=== PATIENT | male | born 1975 | race Caucasian/White ===

== ENCOUNTER 2016-09-25 14:29 | Emergency (ER) | payer OTHER ==
[~2016-09-25] VITALS: Ht 177.8 cm; Wt 117.9 kg
[~2016-09-25 14:29] MED LIST: ASP325T PO; ASP81TEC PO; ATEN-158 GT; ATEN100T45 PO; ATEN100T88 PO; ATN25T; ATN50T; ATOR20TA49 PO; Atorvastatin Calcium PO; CLOP75TA PO; CLPD75T PO; CRUT1EAC16 MC; CYCL10TA45 PO; CYCL10TA9 PO; DOXY100C42 PO; GABA100C; HYDR-34 PO; HYDR-3583 PO; HYDR1TAB PO; HYOS0.1217 PO; IBP800T PO; IBUP-1773 PO; KETO-22 PO; Lisinopril PO; METF500T8 PO; MTF500T PO; NAPR-243 PO; NAPR550T PO; NIA500ERT PO; OMG1KC; OMG1KC PO; ONDAN4ODT PO; Omega 3 Polyunsat Fatty Acids PO; PNT40TEC; PNT40TEC PO; PRD20T PO; PROP1TAB77 PO; PRX20T; ROSU20TA14; SITA1TAB6; SITA1TAB6 PO; TRAM-21 PO; URSO500T9 PO; WELCHOL; [UNRECOGNIZED DRUG - OTHER]; [UNRECOGNIZED DRUG - OTHER]
[2016-09-25] MEDS ORDERED: HYDROcodone/APAP 5 MG/325 MG (LORTAB) TAB PO ONE (15:00)
[2016-09-25] MEDS ORDERED: HYDR-757 PO (15:04)
--- NOTE | 2016-09-25 15:04 | ED Fall/Injury ---
General Chief Complaint: Trauma-Non Activation Stated Complaint: BACK INJ, FALL Nursing Triage Note: PT TO ED W/ C/O BACK PAIN. SEE TRAUMA ASSESSMENT Source: patient Exam Limitations: no limitations History of Present Illness Time seen by provider: 15:00 Initial Comments To ER from home with reports of a fall downstairs on the slippery ice. Denies striking his head. Reports pain in his back between his shoulder blades and pain in his low back as well as to the right of his mid thoracic back. No abdominal injuries. He landed on his back. No extremity injuries. Location Injury Occurred: HOME Severity: moderate Injuries/Pain Location: back Context: slipped Loss of Consciousness: no loss of consciousness Modifying Factors: Worse With Movement Associated Symptoms (Fall): Denies Symptoms Allergies and Home Medications Allergies Coded Allergies: iodine (Verified Allergy, Unknown, 05/02/16) CONTRAST MEDIA tramadol (Unverified Allergy, Unknown, RASH, 05/02/16) Home Medications Atenolol 50 Mg Tab 100 MG GT DAILY (Reported) Atorvastatin Calcium 20 Mg Tablet #30 20 MG PO HS Prescribed by: TERRI GILLIAM on 05/02/16 1544 Hydrocodone/Acetaminophen 1 Each Tablet #5 1 EACH PO Q4H PRN PRN PAIN Prescribed by: RAF COLES on 09/25/16 1504 Metformin HCl 500 Mg Tab.er.24h #120 500 MG PO QID Prescribed by: TERRI GILLIAM on 05/02/16 1543 Constitutional: see HPI Eyes: No Symptoms Reported Ears, Nose, Mouth, Throat: no symptoms reported Respiratory: no symptoms reported Cardiovascular: no symptoms reported Genitourinary: no symptoms reported Musculoskeletal: see HPI back pain Skin: no symptoms reported Psychiatric/Neurological: No Symptoms Reported Past Fgtgrkd-Axouln-Xgpoqm Hx Patient Social History Alcohol Use: Occasionally Uses Recreational Drug Use: No Smoking Status: Current Everyday Smoker Type Used: Cigarettes Recent Foreign Travel: No Contact w/Someone Who Travel: No Recent Infectious Disease Expo: No Recent Hopitalizations: Yes (2008-Chest Pain) Physical Abuse Screen: No Sexual Abuse: No Immunizations Up To Date Tetanus Booster (TDap): More than 5yrs Date of Influenza Vaccine: Jun 13, 2010 Surgeries HX Surgeries: Yes Surgeries: Angioplasty, Appendectomy Respiratory Hx Respiratory Disorders: No Cardiovascular Hx Cardiac Disorders: Yes (heart cath in 2005, 02/2011) Cardiac Disorders: Hypertension Neurological Hx Neurological Disorders: No Reproductive System Hx Reproductive Disorders: No Sexually Transmitted Disease: No Genitourinary Hx Genitourinary Disorders: No Gastrointestinal Hx Gastrointestinal Disorders: No Musculoskeletal Hx Musculoskeletal Disorders: No Endocrine Hx Endocrine Disorders: Yes Endocrine Disorders: Diabetes, Non-Insulin dep HEENT HX ENT Disorders: No Cancer Hx Cancer: No Psychosocial Hx Psychiatric Problems: No Integumentary HX Skin/Integumentary Disorder: No Blood Transfusions Hx Blood Disorders: No Family Medical History Family Medial History: Cardiovascular disease 19 FATHER Diabetes mellitus 19 FATHER Hypertension 19 FATHER MS (multiple sclerosis) 19 FATHER Physical Exam Vital Signs Vital Sign - Last 12Hours 09/25/16 14:39 Temp 98.1 Pulse 86 Resp 20 B/P 133/87 Pulse Ox 99 O2 Delivery Room Air Capillary Refill : Less Than 3 Seconds General Appearance: WD/WN no apparent distress HEENT: PERRL/EOMI normal ENT inspection Neck: non-tender full range of motionNo tender lateral, No tender midline Respiratory: normal breath sounds no respiratory distress no accessory muscle use Gastrointestinal: normal bowel sounds non tender soft Back: No vertebral tenderness, other (small bruise just to the right of the thoracic spine at approximately the T4-T5 region) Extremities: normal range of motion non-tender Neurologic/Psychiatric: alert normal mood/affect oriented x 3 Skin: normal color warm/dry Eads Coma Score Best Eye Response: (4) Open Spontaneously Best Verbal Response: (5) Oriented Best Motor Response: (6) Obeys Commands Jose Total: 15 Progress/Results/Core Measures Results/Orders My Orders Orders-RAF COLES APRN Ribs/Unilateral With Chest (09/25/16 14:47) Lumbar Spine - 2-3 Views (09/25/16 14:47) Hydrocodone/Apap 5/325 Tablet (Lortab 5 (09/25/16 15:00) Medications Given in ED Current Medications Medications Dose Ordered Sig/Ernesto Route Start Time Stop Time Status Last Admin Dose Admin Acetaminophen/ Hydrocodone Bitart 1 tab ONCE ONCE PO 09/25/16 15:00 09/25/16 15:01 DC 09/25/16 15:02 1 TAB Vital Signs/I&O Vital Sign - Last 12Hours 09/25/16 14:39 Temp 98.1 Pulse 86 Resp 20 B/P 133/87 Pulse Ox 99 O2 Delivery Room Air Blood Pressure Mean: 102 Diagnostic Imaging Diagonstic Imaging: Xray Plain Films/CT/US/NM/MRI: chest Comments NAME: BRIAN KONG MED REC#: [id number] PT STATUS: REG ER : 1975 PHYSICIAN: RAF COLES APRN ADMIT DATE: 09/25/16/ER Draft Date of Exam:09/25/16 RIBS/UNILATERAL WITH CHEST INDICATION: Status post fall down steps, pain. TECHNIQUE: Single-view chest with three views right ribs at 03:18 p.m. CORRELATION STUDY: Chest from 04/10/2016. FINDINGS: Heart size and vasculature normal. Dorothy are slightly prominent but likely relatively stable. There is suggestion of minimal atelectasis about the right lung base. No significant infiltrate, effusion, or pneumothorax. There is no acute displaced right-sided rib fracture. IMPRESSION: 1. Negative for acute traumatic abnormality of the chest. No acute displaced right-sided rib fracture. 2. Minimal right basilar atelectasis. Dictated on workstation # [id number] Dict: 09/25/16 1522 Trans: 09/25/16 1531 [id number] Interpreted by: ALIREZA ALCANTAR DO Electronically signed by: Departure Impression Impression: Primary Impression: Contusion Qualified Code: S20.221A - Contusion of right back wall of thorax, initial encounter Disposition: HOME, SELF-CARE Condition: Stable Departure-Patient Inst. Decision time for Depature: 15:03 Referrals: HANNAH LEE (PCP/Family) Primary Care Physician Patient Instructions: Contusion (DC), Preventing Falls Add. Discharge Instructions: 1. Medication as directed. It is important to take a deep breath several times per hour for the next several days. Chest wall injuries make it painful to breathe and this can subcutaneous up for the development of pneumonia. It is important to take a deep breath and cough several times per hour. 2. All discharge instructions reviewed with patient and/or family. Voiced understanding. Scripts Hydrocodone/Acetaminophen ([place] 5-325 Tablet)1 Each Tablet1 Each PO Q4H PRN PAIN #5 TAB Prov:RAF COLES APRN 09/25/16 RAF COLES APRN Sep 25, 2016 15:04
--- NOTE | 2016-09-25 15:26 | Diagnostic Imaging Report ---
INDICATION: Status post fall down steps landing on back. Pain. TECHNIQUE: AP, Lateral and Spot imaging of the lumbar spine. CORRELATION STUDY: 05/29/2011. FINDINGS: There is either very mild rightward curvature or perhaps rotation of the patient. Alignment is otherwise anatomic. Lumbar vertebral body heights are maintained. Mild multilevel endplate lipping is noted. Very mild disc space narrowing is noted, particularly at the L4-L5 and L3-L4 levels. No suggestion for acute bony abnormality. SI joints are unremarkable. IMPRESSION: Mild rightward curvature or perhaps rotation of the lumbar spine. No suggestion for an acute bony abnormality. Dictated by: Dictated on workstation # [id number]
--- NOTE | 2016-09-25 15:32 | Diagnostic Imaging Report ---
INDICATION: Status post fall down steps, pain. TECHNIQUE: Single-view chest with three views right ribs at 03:18 p.m. CORRELATION STUDY: Chest from 04/10/2016. FINDINGS: Heart size and vasculature normal. Dorothy are slightly prominent but likely relatively stable. There is suggestion of minimal atelectasis about the right lung base. No significant infiltrate, effusion, or pneumothorax. There is no acute displaced right-sided rib fracture. IMPRESSION: 1. Negative for acute traumatic abnormality of the chest. No acute displaced right-sided rib fracture. 2. Minimal right basilar atelectasis. Dictated by: Dictated on workstation # [id number]
[2016-09-25 15:44] VITALS: BP 0/0
== END 2016-09-25 15:45 | disposition home or self-care (01) ==
LOC: EDUNIT# 14:29 → ER 14:31
DX: S20.221A Contusion of right back wall of thorax, initial encounter (principal); I10 Essential (primary) hypertension; E11.9 Type 2 diabetes mellitus without complications; F17.210 Nicotine dependence, cigarettes, uncomplicated; Z79.84 Long term (current) use of oral hypoglycemic drugs; Z79.899 Other long term (current) drug therapy; W10.9XXA Fall (on) (from) unspecified stairs and steps, initial encounter; Y99.8 Other external cause status
CPT/HCPCS: 71101; 72100

== ENCOUNTER 2017-01-25 15:10 | Observation (INO) | payer OTHER ==
[2017-01-25] VITALS (7 sets, daily range): BP systolic 123–139; BP diastolic 60–82
[~2017-01-25] VITALS: Ht 180.3 cm; Wt 128.0 kg
[~2017-01-25 15:10] MED LIST changes: +HYDR-757 PO
[2017-01-25 15:29] LABS: BASOPHILS % (AUTO) 0 % (0-10); EOSINOPHILS # (AUTO) 0.1 10^3/uL (0.0-0.3); EOSINOPHILS % (AUTO) 1 % (0-10); LYMPHOCYTES # (AUTO) 2.3 X 10^3 (1.0-4.0); LYMPHOCYTES % (AUTO) 25 % (12-44); MEAN CORPUSCULAR HEMOGLOBIN 32 PG (25-34); MEAN CORPUSCULAR HGB CONC 34 G/DL (32-36); MEAN CORPUSCULAR VOLUME 92 FL (80-99); MEAN PLATELET VOLUME 11.3 FL (7.4-10.4); MONOCYTES # (AUTO) 0.5 X 10^3 (0.0-1.0); MONOCYTES % (AUTO) 6 % (0-12); NEUTROPHILS # (AUTO) 6.3 X 10^3 (1.8-7.8); NEUTROPHILS % (AUTO) 68 % (42-75); PLATELET COUNT 199 10^3/uL (130-400); RED CELL DISTRIBUTION WIDTH 13.6 % (10.0-14.5); WHITE BLOOD COUNT 9.2 10^3/uL (4.3-11.0)
[2017-01-25] MEDS ORDERED: ASPIRIN 81 MG CHEW (CHILDREN'S ASA) PO ONE (15:30)
[2017-01-25] MEDS ORDERED: RX-NITROGLYCERIN 0.4 MG TAB BTL 25'S SL PRN (15:30)
[2017-01-25 15:36] LABS: INR 0.9 (0.8-1.4); PROTHROMBIN TIME PATIENT 11.7 SEC (12.2-14.7)
--- NOTE | 2017-01-25 15:43 | ED Chest Pain ---
General Chief Complaint: Chest Pain Stated Complaint: CP/SOA Nursing Triage Note: PT CO OF CHEST PAIN FOR 15 MIN, RATES 7/10 AT THIS X Nursing Sepsis Screen: No Definite Risk Source: patient Exam Limitations: no limitations History of Present Illness Time seen by provider: 15:11 Initial Comments Here with report of chest pain that is central and radiates up and down and chest that is associated with dizziness. Onset 30 minutes prior to arrival and has persisted since. Denies nausea or vomiting. Denies breathing problems. Timing/Duration: 1/2 hour Severity/Quality: moderate, pressure Location: central Radiation: sternal notch, epigastric Activities at Onset: rest Prior CP/Workup: cardiac cath, echocardiography, stress test Modifying Factors: improves with rest ASA po HIGH SPEED WARPER TENDER: No NTG SL HIGH SPEED WARPER TENDER: No Associated Symptoms: No abdominal pain, No back pain, No diaphoresis, dizziness , No fever/chills, No nausea/vomiting, No shortness of breath, No weakness Allergies and Home Medications Allergies Coded Allergies: iodine (Verified Allergy, Unknown, 05/02/16) CONTRAST MEDIA tramadol (Unverified Allergy, Unknown, RASH, 05/02/16) Home Medications Atenolol 50 Mg Tab, 100 MG GT DAILY, (Reported) Atorvastatin Calcium 20 Mg Tablet, 20 MG PO HS, #30 Prescribed by: TERRI GILLIAM on 05/02/16 1544 Hydrocodone/Acetaminophen 1 Each Tablet, 1 EACH PO Q4H PRN for PAIN, #5 Prescribed by: RAF COLES on 09/25/16 1504 Metformin HCl 500 Mg Tab.er.24h, 500 MG PO QID, #120 Prescribed by: TERRI GILLIAM on 05/02/16 1543 Review of Systems Constitutional: see HPI, No chills, No fever EENTM: No Symptoms Reported Respiratory: No Symptoms Reported, Denies Orthopnea Cardiovascular: Denies Chest Pain Gastrointestinal: No Symptoms Reported Genitourinary: No Symptoms Reported Musculoskeletal: no symptoms reported Skin: no symptoms reported Psychiatric/Neurological: No Symptoms Reported All Other Systems Reviewed Negative Unless Noted: Yes Past Ovgboxp-Rklulz-Oyrlsj Hx Patient Social History Alcohol Use: Occasionally Uses Recreational Drug Use: No Smoking Status: Current Everyday Smoker Type Used: Cigarettes Recent Foreign Travel: No Contact w/Someone Who Travel: No Recent Infectious Disease Expo: No Recent Hopitalizations: No Immunizations Up To Date Tetanus Booster (TDap): More than 5yrs Date of Influenza Vaccine: Jun 13, 2010 Surgeries HX Surgeries: Yes Surgeries: Angioplasty, Appendectomy Respiratory Hx Respiratory Disorders: No Cardiovascular Hx Cardiac Disorders: Yes (heart cath in 2005, 02/2011) Cardiac Disorders: Hypertension Neurological Hx Neurological Disorders: No Reproductive System Hx Reproductive Disorders: No Sexually Transmitted Disease: No Genitourinary Hx Genitourinary Disorders: No Gastrointestinal Hx Gastrointestinal Disorders: No Musculoskeletal Hx Musculoskeletal Disorders: No Endocrine Hx Endocrine Disorders: Yes Endocrine Disorders: Diabetes, Non-Insulin dep HEENT HX ENT Disorders: No Cancer Hx Cancer: No Psychosocial Hx Psychiatric Problems: No Integumentary HX Skin/Integumentary Disorder: No Blood Transfusions Hx Blood Disorders: No Reviewed Nursing Assessment Reviewed/Agree w Nursing PMH: Yes Family Medical History Family Medial History: Cardiovascular disease 19 FATHER Diabetes mellitus 19 FATHER Hypertension 19 FATHER MS (multiple sclerosis) 19 FATHER Physical Exam Vital Signs Vital Sign - Last 12Hours 01/25/17 15:12 Temp 98.1 Pulse 72 Resp 25 B/P (MAP) 146/71 Pulse Ox 97 Capillary Refill : Less Than 3 Seconds General Appearance: No Apparent Distress, WD/WN HEENT: PERRL/EOMI, Pharynx Normal Neck: Non Tender, Supple Respiratory: Lungs Clear, Normal Breath Sounds Cardiovascular: Regular Rate, Rhythm, No Murmur Gastrointestinal: Non Tender, Soft Extremity: Normal Range of Motion, Non Tender Neurologic/Psychiatric: Alert, Oriented x3 Skin: Normal Color, Warm/Dry Progress/Results/Core Measures Results/Orders Lab Results Laboratory Tests Test 01/25/17 15:15 Range/Units White Blood Count 9.2 4.3-11.0 10^3/uL Red Blood Count 5.10 4.35-5.85 10^6/uL Hemoglobin 16.2 13.3-17.7 G/DL Hematocrit 47 40-54 % Mean Corpuscular Volume 92 80-99 FL Mean Corpuscular Hemoglobin 32 25-34 PG Mean Corpuscular Hemoglobin Concent 34 32-36 G/DL Red Cell Distribution Width 13.6 10.0-14.5 % Platelet Count 199 130-400 10^3/uL Mean Platelet Volume 11.3 H 7.4-10.4 FL Neutrophils (%) (Auto) 68 42-75 % Lymphocytes (%) (Auto) 25 12-44 % Monocytes (%) (Auto) 6 0-12 % Eosinophils (%) (Auto) 1 0-10 % Basophils (%) (Auto) 0 0-10 % Neutrophils # (Auto) 6.3 1.8-7.8 X 10^3 Lymphocytes # (Auto) 2.3 1.0-4.0 X 10^3 Monocytes # (Auto) 0.5 0.0-1.0 X 10^3 Eosinophils # (Auto) 0.1 0.0-0.3 10^3/uL Basophils # (Auto) 0.0 0.0-0.1 10^3/uL Prothrombin Time 11.7 L 12.2-14.7 SEC INR Comment 0.9 0.8-1.4 Activated Partial Thromboplast Time 32 24-35 SEC D-Dimer 0.37 0.00-0.49 UG/ML Sodium Level 137 135-145 MMOL/L Potassium Level 4.3 3.6-5.0 MMOL/L Chloride Level 105 98-107 MMOL/L Carbon Dioxide Level 26 21-32 MMOL/L Anion Gap 6 5-14 MMOL/L Blood Urea Nitrogen 12 7-18 MG/DL Creatinine 0.90 0.60-1.30 MG/DL Estimat Glomerular Filtration Rate > 60 BUN/Creatinine Ratio 13 Glucose Level 143 H 70-105 MG/DL Calcium Level 9.2 8.5-10.1 MG/DL Magnesium Level 2.3 1.8-2.4 MG/DL Total Bilirubin 0.6 0.1-1.0 MG/DL Aspartate Amino Transf (AST/SGOT) 25 5-34 U/L Alanine Aminotransferase (ALT/SGPT) 52 0-55 U/L Alkaline Phosphatase 36 L 40-136 U/L Myoglobin 42.5 10.0-92.0 NG/ML Troponin I < 0.30 <0.30 NG/ML B-Type Natriuretic Peptide 16.3 <100.0 PG/ML Total Protein 7.2 6.4-8.2 G/DL Albumin 3.9 3.2-4.5 G/DL Amylase Level 44 25-125 U/L Lipase 24 8-78 U/L My Orders Orders - NORRIS ZHU MD Cbc With Automated Diff (01/25/17 15:19) Magnesium (01/25/17 15:19) Chest 1 View, Ap/Pa Only (01/25/17 15:19) Ekg Tracing (01/25/17 15:) Cardiac Profile 1 (01/25/17:) Comprehensive Metabolic Panel (01/25/17) Myoglobin Serum (01/25/17 15:) Protime With Inr (01/25/17 15:) Partial Thromboplastin Time (01/25/17:) O2 (01/25/17:) Monitor-Rhythm Ecg Trace Only (01/25/17:) Lipid Panel (01/26/17 06:00) Aspirin Chewable Tablet (Baby Aspirin Ch (01/25/17 15:30) Rx-Nitroglycerin Sl Tabs (Rx-Nitrostat S (01/25/17:) Saline Lock/Iv-Start (01/25/17:) Lipase (01/25/17:) Amylase (01/25/17:) BNP (01/25/17:) Fibrin Degradation Products (01/25/17:) Medications Given in ED Current Medications Medications Dose Ordered Sig/Ernesto Route Start Time Stop Time Status Last Admin Dose Admin Aspirin 324 mg ONCE ONCE PO 01/25/17 15:30 01/25/17 15:31 DC 01/25/17 15:44 324 MG Nitroglycerin 0.4 mg PRN PRN SL 01/25/17 15:30 01/25/17 15:44 0.4 MG Vital Signs/I&O Vital Sign - Last 12Hours 01/25/17 15:12 Temp 98.1 Pulse 72 Resp 25 B/P (MAP) 146/71 Pulse Ox 97 Blood Pressure Mean: 96 Progress Note : Progress Note Seen and evaluated. IV, labs, EKG, chest x-ray, ASA 324 mg by mouth and nitroglycerin sublingual ordered. Monitor patient. Patient's pain relieved after one nitroglycerin. Monitor patient. Findings, results and history reviewed with patient and family. 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 I did discuss the case with Dr. Madera and he accepts patient for admission. I did consult Dr. Moreno and he accepts patient in consult. Dr. Moreno as patient's primary sleep manager. Admit, observation status. ECG Initial ECG Impression Date: January 25, 2017 Initial ECG Impression Time: 15:16 Initial ECG Rate: 69 Initial ECG Rhythm: Normal Sinus Comment Sinus rhythm with normal axis. No evidence of ST elevation [place]. Unchanged from previous. Interpreted by me. Diagnostic Imaging Diagonstic Imaging: Xray Plain Films/CT/US/NM/MRI: chest Comments NAME: BRIAN KONG [facility] REC#: [id number] PT STATUS: REG ER : 1975 PHYSICIAN: NORRIS ZHU MD ADMIT DATE: 01/25/17/ER Signed Date of Exam: 01/25/17 CHEST 1 VIEW, AP/PA ONLY INDICATION: Shortness of breath and chest pain x30 minutes.. TECHNIQUE: Single view chest 3:37 PM. CORRELATION STUDY: 09/25/2016 FINDINGS: Heart size, mediastinum and vasculature appearing unremarkable for portable technique. The lungs are clear with no consolidating infiltrate. There is no significant effusion or pneumothorax. IMPRESSION: 1. Negative portable chest. Dictated by: Dictated on workstation # [id number] Dict: 01/25/17 1555 Trans: 01/25/17 1556 Interpreted by: ALIREZA ALCANTAR DO Electronically signed by: ALIREZA ALCNATAR DO 01/25/17 1556 Reviewed: Reviewed by Me Departure Communication Time/Spoke to Admitting Phy: 17:57 Time/Spoke to Consulting Physi: 18:02 Impression Impression: Primary Impression: Chest pain Qualified Codes: R07.9 - Chest pain, unspecified Disposition: 09 ADMITTED INPATIENT Condition: Stable Decision to Admit Reason: Admit from ER (General) Decision to Admit/Date: January 25, 2017 Time/Decision to Admit Time: 17:57 Departure-Patient Inst. Referrals: DAMARIS MADERA MD (PCP/Family) Primary Care Physician NORRIS ZHU MD January 25, 2017 15:43
[2017-01-25 15:46] LABS: ALANINE AMINOTRANSFERASE 52 U/L (0-55); ALBUMIN 3.9 G/DL (3.2-4.5); AMYLASE 44 U/L (25-125); ANION GAP 6 MMOL/L (5-14); ASPARTATE AMINO TRANSFERASE 25 U/L (5-34); BILIRUBIN,TOTAL 0.6 MG/DL (0.1-1.0); BLOOD UREA NITROGEN 12 MG/DL (7-18); BUN/CREATININE RATIO 13; CALCIUM 9.2 MG/DL (8.5-10.1); CARBON DIOXIDE 26 MMOL/L (21-32); CHLORIDE 105 MMOL/L (98-107); GFR ESTIMATED > 60; GLUCOSE 143 MG/DL (70-105); LIPASE 24 U/L (8-78); MAGNESIUM 2.3 MG/DL (1.8-2.4); POTASSIUM 4.3 MMOL/L (3.6-5.0); SODIUM 137 MMOL/L (135-145); TOTAL PROTEIN 7.2 G/DL (6.4-8.2)
[2017-01-25 15:53] LABS: MYOGLOBIN SERUM 42.5 NG/ML (10.0-92.0)
--- NOTE | 2017-01-25 15:58 | Diagnostic Imaging Report ---
INDICATION: Shortness of breath and chest pain x30 minutes.. TECHNIQUE: Single view chest 3:37 PM. CORRELATION STUDY: 09/25/2016 FINDINGS: Heart size, mediastinum and vasculature appearing unremarkable for portable technique. The lungs are clear with no consolidating infiltrate. There is no significant effusion or pneumothorax. IMPRESSION: 1. Negative portable chest. Dictated by: Dictated on workstation # [id number]
[2017-01-25] MEDS ORDERED: CATHETER FLUSH 10 ML SYR IV PRN (20:00)
[2017-01-25] MEDS ORDERED: NITROGLYCERIN SUBLINGUAL 0.4 MG TAB (NITROSTAT) SL PRN (20:00)
[2017-01-25] MEDS ORDERED: morphine INJ 4 MG/ML 1 ML (VIAL/SYRINGE) IV PRN (20:00)
--- NOTE | 2017-01-25 20:27 | History & Physicial ---
History of Present Illness History of Present Illness Reason for visit/HPI 41-year-old male admitted for observation due to chest pain that is substernal in nature. Apparently the symptoms started about 30 minutes prior to presentation at the emergency department. When also concerned him is the fact that he had some dizziness. He is currently on medication for hypertension, diabetes as well as hyperlipidemia. In August 2014 he underwent cardiac stress test that did not reveal any acute findings. He also has had cardiac catheterization in 2005 and 2010. He reports no coronary stents. Date of Admission January 25, 2017 at 18:33 I consulted on this patient on 01/25/17 20:25 Attending Physician Serge Madera MD Admitting Physician Serge Madera MD Consult Allergies and Home Medications Allergies Coded Allergies: iodine (Verified Allergy, Unknown, 05/02/16) CONTRAST MEDIA tramadol (Unverified Allergy, Unknown, RASH, 05/02/16) Home Medications Atenolol 50 Mg Tab, 100 MG GT DAILY, (Reported) Atorvastatin Calcium 20 Mg Tablet, 20 MG PO HS, #30 Prescribed by: TERRI GILLIAM on 05/02/16 1544 Hydrocodone/Acetaminophen 1 Each Tablet, 1 EACH PO Q4H PRN for PAIN, #5 Prescribed by: RAF COLES on 09/25/16 1504 Metformin HCl 500 Mg Tab.er.24h, 500 MG PO QID, #120 Prescribed by: TERRI GILLIAM on 05/02/16 1543 Past Agemhis-Ztuzpz-Zjpqah Hx Patient Social History Marrital Status: Alcohol Use: Occasionally Uses Recreational Drug Use: No Smoking Status: Current Everyday Smoker Type Used: Cigarettes Recent Foreign Travel: No Contact w/other who traveled: No Recent Hopitalizations: No Recent Infectious Disease Expo: No Immunizations Up To Date Tetanus Booster (TDap): More than 5yrs Date of Influenza Vaccine: Jun 13, 2010 Surgeries HX Surgeries: Yes Surgeries: Angioplasty, Appendectomy Respiratory Hx Respiratory Disorders: No Cardiovascular Hx Cardiovascular Disorders: Yes (heart cath in 2005, 02/2011) Cardiac Disorders: Hypertension Neurological Hx Neurological Disorders: No Reproductive System Hx Reproductive Disorders: No Sexually Transmitted Disease: No Genitourinary Hx Genitourinary Disorders: No Gastrointestinal Hx Gastrointestinal Disorders: No Musculoskeletal Hx Musculoskeletal Disorders: No Endocrine Hx Endocrine Disorders: Yes Endocrine Disorders: Diabetes, Non-Insulin dep HEENT HX ENT Disorders: No Cancer Hx Cancer: No Psychosocial Hx Psychiatric Problems: No Integumentary HX Skin/Integumentary Disorder: No Blood Transfusions Hx Blood Disorders: No Reviewed Nursing Assessment Reviewed/Agree w Nursing PMH: Yes Family Medical History Family Hx: Cardiovascular disease 19 FATHER Diabetes mellitus 19 FATHER Hypertension 19 FATHER MS (multiple sclerosis) 19 FATHER Constitutional: see HPI Physical Exam Vital Signs Vital Sign - Last 12Hours 01/25/17 15:12 Temp 98.1 Pulse 72 Resp 25 B/P (MAP) 146/71 Pulse Ox 97 Capillary Refill : Less Than 3 Seconds General Appearance: No Apparent Distress Eyes: Bilateral Eye Normal Inspection HEENT: Pharynx Normal Neck: Non Tender, Supple Respiratory: Lungs Clear Cardiovascular: Regular Rate, Rhythm Gastrointestinal: Soft Rectal: Deferred Back: Normal Inspection Extremity: Normal Capillary Refill Skin: Normal Color Assessment/Plan Assessment and Plan 1. Chest pain -Patient to be admitted to [facility] for overnight observation. -Further cardiac laboratory to be performed. -Cardiology consultation 2. Hyperlipidemia - to be maintain on atorvastatin 3. Diabetes mellitus -He will be continued on metformin 4. Hypertension -Currently treated with beta andrews Problems: Admission Diagnosis 1. Chest pain 2. Hyperlipidemia 3. Diabetes mellitus 4. Hypertension Clinical Quality Measures AMI/AHF: ASA po Prior to arrival: No SERGE MADERA MD January 25, 2017 20:27
[2017-01-25] MEDS: CATHETER FLUSH 10 ML SYR IV SCH (22:29)
[2017-01-26 00:15] VITALS: BP 127/58
[2017-01-26 03:20] VITALS: BP 133/60
[2017-01-26 05:34] LABS: CREATINE KINASE 82 U/L (30-200)
[2017-01-26 05:35] LABS: CHOLESTEROL 239 MG/DL (< 200); DIRECT LDL 89 MG/DL (1-129); TRIGLYCERIDES 888 MG/DL (<150); VLDL CHOLESTEROL 178 MG/DL (5-40)
[2017-01-26 05:42] LABS: MYOGLOBIN SERUM 28.9 NG/ML (10.0-92.0); TROPONIN I < 0.30 NG/ML (<0.30)
[2017-01-26] MEDS: CATHETER FLUSH 10 ML SYR IV SCH (05:44)
--- NOTE | 2017-01-26 07:38 | Progress Note (SOAP) ---
Subjective Subjective/Events-last exam Patient apparently had a good night not suffering from any dizziness or chest pain. Objective Exam Vital Signs Date Time Temp Pulse Resp B/P (MAP) Pulse Ox O2 Delivery O2 Flow Rate FiO2 01/26/17 03:20 96.4 60 16 133/60 96 01/26/17 01:07 68 01/26/17 00:15 97.1 63 20 127/58 94 01/25/17 23:30 95.9 70 20 134/60 95 01/25/17 22:15 96.8 59 20 139/63 95 01/25/17 21:15 96.4 63 20 135/63 96 01/25/17 20:15 97.8 59 18 124/74 97 01/25/17 20:00 96.0 65 20 123/73 97 01/25/17 19:45 96.9 82 16 128/82 92 01/25/17 19:35 96.3 55 20 135/68 95 01/25/17 18:59 60 14 97 01/25/17 15:12 98.1 72 25 146/71 97 I & O 01/26/17 07:00 Intake Total 0 ml Output Total 1350 ml Balance -1350 ml Capillary Refill : Less Than 3 Seconds General Appearance: No Apparent Distress Neck: Supple Respiratory: Chest Non Tender, Lungs Clear Cardiovascular: Regular Rate, Rhythm Gastrointestinal: soft Results Lab Laboratory Tests 01/25/17 15:15: White Blood Count 9.2, Red Blood Count 5.10, Hemoglobin 16.2, Hematocrit 47, Mean Corpuscular Volume 92, Mean Corpuscular Hemoglobin 32, Mean Corpuscular Hemoglobin Concent 34, Red Cell Distribution Width 13.6, Platelet Count 199, Mean Platelet Volume 11.3H, Neutrophils (%) (Auto) 68, Lymphocytes (%) (Auto) 25 , Monocytes (%) (Auto) 6, Eosinophils (%) (Auto) 1, Basophils (%) (Auto) 0, Neutrophils # (Auto) 6.3, Lymphocytes # (Auto) 2.3, Monocytes # (Auto) 0.5, Eosinophils # (Auto) 0.1, Basophils # (Auto) 0.0, Prothrombin Time 11.7L, INR Comment 0.9, Activated Partial Thromboplast Time 32, D-Dimer 0.37, Sodium Level 137, Potassium Level 4.3, Chloride Level 105, Carbon Dioxide Level 26, Anion Gap 6, Blood Urea Nitrogen 12, Creatinine 0.90, Estimat Glomerular Filtration Rate > 60, BUN/Creatinine Ratio 13, Glucose Level 143H, Calcium Level 9.2, Magnesium Level 2.3, Total Bilirubin 0.6, Aspartate Amino Transf (AST/SGOT) 25, Alanine Aminotransferase (ALT/SGPT) 52, Alkaline Phosphatase 36L, Myoglobin 42.5 , Troponin I < 0.30, B-Type Natriuretic Peptide 16.3, Total Protein 7.2, Albumin 3.9, Amylase Level 44, Lipase 24 01/25/17 21:56: Glucometer 138H 01/26/17 04:50: Myoglobin 28.9, Troponin I < 0.30, Total Creatine Kinase 82, Triglycerides Level 888H, Cholesterol Level 239H, LDL Cholesterol Direct 89, VLDL Cholesterol 178H, HDL Cholesterol 27L 01/26/17 05:05: Glucometer 96 Assessment/Plan Assessment/Plan Assess & Plan/Chief Complaint 1. Chest pain -Patient to be admitted to [facility] for overnight observation. -Further cardiac laboratory to be performed. -01/26 -ECG revealed no acute findings from this morning -Cardiology consultation pending 2. Hyperlipidemia - to be maintain on atorvastatin -01/26 triglycerides and total cholesterol added with low HDL at 27 3. Diabetes mellitus -He will be continued on metformin -01/26 Leukos under control 4. Hypertension -Currently treated with beta andrews Clinical Quality Measures AMI/AHF: ASA po Prior to arrival: No DVT/VTE Risk/Contraindication: Risk Factor Score Per Nursin RFS Level Per Nursing on Admit: 2=Moderate DAMARIS MADERA MD January 26, 2017 07:38
[2017-01-26 08:08] VITALS: BP 123/70
--- NOTE | 2017-01-26 08:16 | Consultation-Cardiology ---
HPI-Cardiology Cardiology Consultation Date of Consultation 01/26/17 Date of Admission Indication: Chest pain HPI Patient is a 41 y/o male with history of hypertension, hyperlipidemia, diabetes mellitus, presented to the ER with complaints of chest pain and dyspnea. Patient reports chest pain was relieved by nitroglycerin. Denies any active chest pain at this time. States he had episode similar to this last week as well. Denies any radiation of pain, nausea vomiting, diaphoresis, swelling in legs. Last cardiac workup was August 2014. Patient was seen and evaluated, he is a 41 years old gentleman with history of hypertension and hyperlipidemia and diabetes, has been having occasional chest pain, had an episode of chest pain relieved by nitroglycerin in the emergency room, was chest pain-free this morning, denied any palpitation, syncope or near syncopal episodes, I proceed with exercise stress echo which did not show any ischemia or infarction, reassured him at this time. We'll arrange for follow- up as an outpatient. Home Medications & Allergies Allergies: Coded Allergies: iodine (Verified Allergy, Unknown, 05/02/16) CONTRAST MEDIA tramadol (Unverified Allergy, Unknown, RASH, 05/02/16) Home Medication List Reviewed: Yes [id number]-[id number]-[id number] Hx Patient Social History Marital Status: Alcohol Use: Occasionally Uses Recreational Drug Use: No Smoking Status: Current Everyday Smoker Type Used: Cigarettes Recent Foreign Travel: No Recent Infectious Disease Expo: No Recent Hopitalizations: No Physical Abuse Screen: No Sexual Abuse: No Immunizations Up To Date Tetanus Booster (TDap): More than 5yrs Date of Influenza Vaccine: Jun 13, 2010 Family Medical History Family History: Cardiovascular disease 19 FATHER Diabetes mellitus 19 FATHER Hypertension 19 FATHER MS (multiple sclerosis) 19 FATHER Constitutional: No diaphoresis, No fever, No malaise EENTM: No blurred vision, No double vision, No ear pain, No eye pain, No throat pain, No vision loss Respiratory: No cough, dyspnea on exertion, short of breath, No wheezing Cardiovascular: chest pain, No edema, No Hx of Intervention, No palpitations, No vascular heart diseas Gastrointestinal: No abdominal pain, No constipation, No diarrhea Genitourinary: No discharge, No dysuria, No frequency, No hematuria Musculoskeletal: No back pain Skin: No lesions, No rash Psychiatric/Neurological: Denies Anxiety Reviewed Test Results Reviewed Test Results Lab Laboratory Tests 01/25/17 15:15: White Blood Count 9.2, Red Blood Count 5.10, Hemoglobin 16.2, Hematocrit 47, Mean Corpuscular Volume 92, Mean Corpuscular Hemoglobin 32, Mean Corpuscular Hemoglobin Concent 34, Red Cell Distribution Width 13.6, Platelet Count 199, Mean Platelet Volume 11.3H, Neutrophils (%) (Auto) 68, Lymphocytes (%) (Auto) 25 , Monocytes (%) (Auto) 6, Eosinophils (%) (Auto) 1, Basophils (%) (Auto) 0, Neutrophils # (Auto) 6.3, Lymphocytes # (Auto) 2.3, Monocytes # (Auto) 0.5, Eosinophils # (Auto) 0.1, Basophils # (Auto) 0.0, Prothrombin Time 11.7L, INR Comment 0.9, Activated Partial Thromboplast Time 32, D-Dimer 0.37, Sodium Level 137, Potassium Level 4.3, Chloride Level 105, Carbon Dioxide Level 26, Anion Gap 6, Blood Urea Nitrogen 12, Creatinine 0.90, Estimat Glomerular Filtration Rate > 60, BUN/Creatinine Ratio 13, Glucose Level 143H, Calcium Level 9.2, Magnesium Level 2.3, Total Bilirubin 0.6, Aspartate Amino Transf (AST/SGOT) 25, Alanine Aminotransferase (ALT/SGPT) 52, Alkaline Phosphatase 36L, Myoglobin 42.5 , Troponin I < 0.30, B-Type Natriuretic Peptide 16.3, Total Protein 7.2, Albumin 3.9, Amylase Level 44, Lipase 24 01/25/17 21:56: Glucometer 138H 01/26/17 04:50: Myoglobin 28.9, Troponin I < 0.30, Total Creatine Kinase 82, Triglycerides Level 888H, Cholesterol Level 239H, LDL Cholesterol Direct 89, VLDL Cholesterol 178H, HDL Cholesterol 27L 01/26/17 05:05: Glucometer 96 ECG Impression ECG Initial ECG Rhythm: Normal Sinus Physical Exam Vital Signs Vital Sign - Last 12Hours 01/25/17 15:12 Temp 98.1 Pulse 72 Resp 25 B/P (MAP) 146/71 Pulse Ox 97 Capillary Refill : Less Than 3 Seconds General Appearance: No Apparent Distress, WD/WN HEENT: PERRL/EOMI, TMs Normal Neck: Non Tender, Supple Respiratory: Chest Non Tender, Lungs Clear Cardiovascular: Regular Rate, Rhythm, No Edema, No Gallop, No JVD, Other ( trace bilateral lower extremity edema) Gastrointestinal: Non Tender, Soft Rectal: Deferred Back: No CVA Tenderness Extremity: No Calf Tenderness Neurologic/Psychiatric: Alert, Oriented x3, No Motor/Sensory Deficits, Normal Mood/Affect A/P-Cardiology Admission Diagnosis CP HTN HLP DM Assessment/Plan Chest pain, non specific etiology- EKG reveals no acute ST changes, cardiac enzymes negative. Patient reports CP was relieved by nitro in the ER. Last cardiac workup Aug 2014. Patient has multiple risk factors for progression of CAD, will further evaluate with stress echo today. Nonobstructive CAD per cardiac cath done in 2010. HTN- restart home BP medications and continue to monitor. HLP- maintained on Lipitor 20mg as outpatient. Lipids are poorly controlled. I will add fenofibrate, discussed diet and exercise for better control. DM- management per PCP Tobaccoism- educated on the importance of smoking cessation Obesity- discussed diet and exercise for weight loss. Thank you for allowing us to participate in the management of Mr. Buchanan. This is Pam Victor PA-C as a scribe for Dr. Moreno. Patient was seen and evaluated with Pam, agree with the current scribe, I interviewed the patient and performed physical examination, his lungs were clear to auscultation bilaterally, heart is regular rate and rhythm, patient had mild coronary artery disease in 2010 by cardiac catheterization, admitted with acute chest pain and no acute EKG changes or cardiac enzymes changes, I proceed with exercise stress echo which did not show any ischemia or infarction , he had hypertensive response to exercise, I will restart his home medication, monitor lipids, educated on weight loss and exercise, educated on avoiding tobacco product. Okay for discharge today. Arrange for follow-up as an outpatient. I reviewed the note and agree with the current scribe, made few modification and used Italic Font Clinical Quality Measures AMI/AHF: ASA po Prior to arrival: No DVT/VTE Risk/Contraindication: Risk Factor Score Per Nursin RFS Level Per Nursing on Admit: 2=Moderate PAM ADAIR January 26, 2017 08:16 VALENTINA MORENO MD January 26, 2017 12:22
[2017-01-26] MEDS ORDERED: ASPIRIN E.C. 325 MG (ECOTRIN) TABLET PO SCH (09:00)
[2017-01-26] MEDS ORDERED: METF500T8 PO (09:27)
[2017-01-26] MEDS ORDERED: ASPI-983 PO (09:27)
[2017-01-26] MEDS ORDERED: FISH1CAP15 PO (09:27)
[2017-01-26] MEDS ORDERED: ATEN100T PO (09:27)
[2017-01-26 12:00] VITALS: BP 145/75
[2017-01-26 13:47] VITALS: BP 145/75
--- NOTE | 2017-01-28 12:56 | STRESS TEST ---
DATE OF SERVICE: 01/26/2017 EXERCISE STRESS ECHOCARDIOGRAM REPORT REFERRING PHYSICIAN: Dr. Serge Mosqueda. Baseline heart rate is 58, baseline blood pressure 144/71. Baseline EKG sinus rhythm. SUMMARY: The patient started exercising with the baseline heart rate, blood pressure and EKG mentioned above. He was able to exercise for 9 minutes on standard Juancarlos protocol. Test was terminated due to shortness of breath. He achieved maximum heart rate of 138, which is 77% of maximum expected heart rate. With peak exercise level blood pressure was 200/71. EKG was showing no ischemic changes. Echocardiographic images were acquired and reviewed in the parasternal long axis, parasternal short axis, apical four chamber and apical two chamber views. Review of the images showed normal left ventricular size with normal contractility with no ischemic changes. CONCLUSION: 1. Good exercise tolerance a total of 9 minutes on standard Juancarlos protocol, a total of 10.1 METS achieving only 77% of maximum expected heart rate. 2. Hypertensive response to exercise. 3. Shortness of breath with exercise, resolved during recovery. 4. Normal echocardiographic images with no ischemic changes. 5. No ischemic changes on EKG. Job ID: [id number] DocumentID: [id number] Dictated Date: 01/26/2017 15:10:35 Tool Technician Date: 01/27/2017 08:09:59 Dictated By: VALENTINA VALLADARES MD
== END 2017-01-26 12:24 | disposition home or self-care (01) ==
LOC: EDUNIT# 15:10 → ER 15:12 → 4TH 18:33 → UNDOADMOB 18:33 → 4TH 19:30 → UNDODISOB 01-26 13:49
PROVIDERS: ADMIT Family Medicine; ATTEND Family Medicine
DX: R07.9 Chest pain, unspecified (principal); I10 Essential (primary) hypertension; E11.9 Type 2 diabetes mellitus without complications; Z79.84 Long term (current) use of oral hypoglycemic drugs; E78.5 Hyperlipidemia, unspecified; F17.210 Nicotine dependence, cigarettes, uncomplicated; I25.10 Atherosclerotic heart disease of native coronary artery without angina pectoris; E66.9 Obesity, unspecified; Z68.39 Body mass index [BMI] 39.0-39.9, adult
CPT/HCPCS: 36415; 71010; 80053; 80061; 82150; 82550; 82962; 83690; 83735; 83874; 83880; 84484; 85025; 85379; 85610; 85730; 93005; 93041; 93351; G0378

== ENCOUNTER 2017-03-19 20:00 | Emergency (ER) | payer OTHER ==
[~2017-03-19] VITALS: Ht 180.3 cm; Wt 128.0 kg
[~2017-03-19 20:00] MED LIST changes: +ASPI-983 PO; +ATEN100T PO; +FISH1CAP15 PO
--- NOTE | 2017-03-19 20:13 | ED Back Pain ---
General Stated Complaint: BACK PAIN Source of Information: Patient Exam Limitations: No Limitations History of Present Illness Time Seen by Provider: 20:12 Initial Comments Ambulatory to ER with reports of midline low back pain. This started earlier today after helping a friend move a dresser. Pain does not radiate down either of his legs. No bowel or bladder control. No fevers or chills. He does have a history this is been years ago. Location: Lumbar Spine Timing/Duration: 4-6 Hours Severity: Moderate Associated Symptoms: lower back pain Allergies and Home Medications Allergies Coded Allergies: iodine (Verified Allergy, Unknown, 05/02/16) CONTRAST MEDIA tramadol (Unverified Allergy, Unknown, RASH, 05/02/16) Home Medications Aspirin 81 Mg Tablet.dr, 81 MG PO DAILY, (Reported) Atenolol 100 Mg Tablet, 100 MG PO DAILY, (Reported) Fish Oil/Dha/Epa 1 Each Capsule, 2,400 MG PO DAILY, (Reported) TAKES 2 (1200MG) CAPSULES Metformin HCl 500 Mg Tab.er.24h, 1,000 MG PO BID, (Reported) LAST FILLED #120 12-05-16 TAKES 2 (500MG) TABLETS Constitutional: see HPI EENTM: see HPI Respiratory: no symptoms reported Cardiovascular: no symptoms reported Genitourinary: no symptoms reported Musculoskeletal: see HPI, back pain Skin: no symptoms reported Psychiatric/Neurological: No Symptoms Reported Past Ptqsdjn-[id number]-Krhjnk Hx Patient Social History Type Used: Cigarettes Recent Foreign Travel: No Contact w/Someone Who Travel: No Recent Hopitalizations: No Immunizations Up To Date Tetanus Booster (TDap): More than 5yrs PED Vaccines UTD: Yes Date of Influenza Vaccine: Jun 13, 2010 Seasonal Allergies Seasonal Allergies: No Surgeries HX Surgeries: Yes Surgeries: Angioplasty, Appendectomy Respiratory Hx Respiratory Disorders: No Cardiovascular Hx Cardiac Disorders: Yes (heart cath in 2005, 02/2011) Cardiac Disorders: Hypertension Neurological Hx Neurological Disorders: No Reproductive System Hx Reproductive Disorders: No Sexually Transmitted Disease: No HIV/AIDS: No Genitourinary Hx Genitourinary Disorders: No Gastrointestinal Hx Gastrointestinal Disorders: No Musculoskeletal Hx Musculoskeletal Disorders: No Endocrine Hx Endocrine Disorders: Yes Endocrine Disorders: Diabetes, Non-Insulin dep HEENT HX ENT Disorders: No Cancer Hx Cancer: No Psychosocial Hx Psychiatric Problems: No Integumentary HX Skin/Integumentary Disorder: No Blood Transfusions Hx Blood Disorders: No Adverse Reaction to a Blood Tr: No Family Medical History Family Medial History: Cardiovascular disease 19 FATHER Diabetes mellitus 19 FATHER Hypertension 19 FATHER MS (multiple sclerosis) 19 FATHER Physical Exam Vital Signs Capillary Refill : General Appearance: No Apparent Distress, WD/WN HEENT: PERRL/EOMI, TMs Normal Neck: Full Range of Motion, Normal Inspection Respiratory: No Accessory Muscle Use, No Respiratory Distress Gastrointestinal: Normal Bowel Sounds, Non Tender, Soft Back: Normal Inspection, No Vertebral Tenderness Extremity: Normal Capillary Refill, Normal Inspection Neurologic/Psychiatric: Alert, Oriented x3 Skin: Normal Color, Warm/Dry Progress/Results/Core Measures Results/Orders My Orders Orders - RAF COLES APRN Morphine Injection (Morphine Injection (03/19/17 20:15) Ketorolac Injection (Toradol Injection) (03/19/17 20:15) Departure Impression Impression: Primary Impression: Back pain Disposition: HOME, SELF-CARE Condition: Improved Departure-Patient Inst. Decision time for Depature: 20:15 Referrals: DAMARIS MADERA MD (PCP/Family) Primary Care Physician Patient Instructions: Low Back Pain (DC) Add. Discharge Instructions: 1. Return to ER for any concerns 2. Follow-up with your doctor next week 3. Scripts Hydrocodone/Acetaminophen (Banks 5-325 Tablet) 1 Each Tablet 1 EACH PO Q4H Y for PAIN-SEVERE, #10 TAB Prov: RAF COLES APRN 03/19/17 Prednisone (Prednisone) 20 Mg Tab 40 MG PO DAILY, #6 TAB Prov: RAF COLES APRN 03/19/17 RAF COLES APRN Mar 19, 2017 20:13
[2017-03-19] MEDS ORDERED: KETOROLAC 60 MG/2 ML VIAL IM ONE (20:15)
[2017-03-19] MEDS ORDERED: morphine INJ 10 MG/ML 1ML (SYR OR VIAL) IM ONE (20:15)
[2017-03-19] MEDS ORDERED: HYDR-757 PO (20:16)
[2017-03-19] MEDS ORDERED: PRD20T PO (20:16)
[2017-03-19 21:03] VITALS: BP 130/64
--- OUTSIDE RECORDS SUMMARY | 2017-03-23 08:17 | XMS REPORT | Continuity of Care Document ---
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 plasma creatinine measurement (mass/volume) 0.90 mg /dL 0.60-1.30 Serum or plasma urea nitrogen/creatinine mass ratio 13 NRG Serum or plasma creatinine measurement with calculation of estimated glomerular filtration rate > NRG Serum or plasma glucose measurement (mass/volume) 143 mg/dL 70-105 Serum or plasma calcium measurement (mass/volume) 9.2 mg/dL 8.5-10.1 Serum or plasma total bilirubin measurement (mass/volume) 0.6 mg/dL 0.1-1.0 Serum or plasma alkaline phosphatase measurement (enzymatic activity/volume) 36 U/L 40-136 Serum or plasma aspartate aminotransferase measurement (enzymatic activity/ volume) 25 U/L 5-34 Serum or plasma alanine aminotransferase measurement (enzymatic activity/volume ) 52 U/L 0-55 Serum or plasma protein measurement (mass/volume) 7.2 g/dL 6.4-8.2 Serum or plasma albumin measurement (mass/volume) 3.9 g/dL 3.2-4.5 Magnesium - 01/25/17 15:15 Magnesium 2.3 mg/dL 1.8-2.4 Serum or plasma troponin i.cardiac measurement (mass/volume) - 01/25/17 15:15 Serum or plasma troponin i.cardiac measurement (mass/volume) < ng/mL <0.30 Myoglobin, serum - 01/25/17 15:15 Myoglobin, serum 42.5 ng/mL 10.0-92.0 Serum or plasma amylase measurement (enzymatic activity/volume) - 01/25/17 15: 15 Serum or plasma amylase measurement (enzymatic activity/volume) 44 U/L 25-125 Lipase - 01/25/17 15:15 Lipase 24 U/L 8-78 Capillary blood glucose measurement by glucometer (mass/volume) - 01/25/17 21: 56 Capillary blood glucose measurement by glucometer (mass/volume) 138 mg/dL 70-110 Serum or plasma creatine kinase measurement (enzymatic activity/volume) - 01/26 04:50 Serum or plasma creatine kinase measurement (enzymatic activity/volume) 82 U/L 30-200 Lipid 1996 panel - 01/26/17 04:50 Serum or plasma triglyceride measurement (mass/volume) 888 mg/dL <150 Serum or plasma cholesterol measurement (mass/volume) 239 mg /dL < 200 Serum or plasma cholesterol in HDL measurement (mass/volume) 27 mg/dL 40-60 Cholesterol in LDL [mass/volume] in serum or plasma by direct assay 89 mg/dL 1-129 Serum or plasma cholesterol in VLDL measurement (mass/volume) 178 mg/dL 5-40 Serum or plasma troponin i.cardiac measurement (mass/volume) - 01/26/17 04:50 Serum or plasma troponin i.cardiac measurement (mass/volume) < ng/mL <0.30 Myoglobin, serum - 01/26/17 04:50 Myoglobin, serum 28.9 ng/mL 10.0-92.0 Capillary blood glucose measurement by glucometer (mass/volume) - 01/26/17 05: 05 Capillary blood glucose measurement by glucometer (mass/volume) 96 mg/dL 70-110 Encounters ACCT No. Visit Date/Time Discharge Status Pt. Type Provider Facility Loc./Unit Complaint [id number] 09/08/2014 11:30:00 09/08/2014 23: 59:59 CLS Outpatient LINDSAY MATTHEW DO [id number] 06/26/2014 08:50:00 06/26/2014 23: 59:59 CLS Outpatient HANNAH LEE APRN [id number] 04/11/2014 15:37:00 04/11/2014 23: 59:59 CLS Outpatient HANNAH LEE APRN [id number] 12/01/2012 18:23:00 12/01/2012 23: 59:59 CLS Outpatient HANNAH LEE APRN [id number] 10/13/2011 16:18:00 10/13/2011 23: 59:59 CLS Outpatient JENNA VENTURA, MYNOR
== END 2017-03-19 21:03 | disposition home or self-care (01) ==
LOC: EDUNIT# 20:00 → ER 20:02
DX: M54.5 Low back pain (principal); E11.9 Type 2 diabetes mellitus without complications; I10 Essential (primary) hypertension; F17.210 Nicotine dependence, cigarettes, uncomplicated; Z82.49 Family history of ischemic heart disease and other diseases of the circulatory system; Z90.49 Acquired absence of other specified parts of digestive tract; Z98.61 Coronary angioplasty status; Z79.82 Long term (current) use of aspirin; Z79.84 Long term (current) use of oral hypoglycemic drugs
CPT/HCPCS: 96372; 99284

== ENCOUNTER 2017-04-19 13:33 | Emergency (ER) | payer OTHER ==
[~2017-04-19] VITALS: Ht 180.3 cm; Wt 122.0 kg
[2017-04-19] MEDS ORDERED: morphine INJ 10 MG/ML 1ML (SYR OR VIAL) IM ONE (13:45)
[2017-04-19] MEDS ORDERED: KETOROLAC 60 MG/2 ML VIAL IM ONE (13:45)
--- NOTE | 2017-04-19 13:47 | ED Back Pain ---
General Chief Complaint: Back Problems Stated Complaint: LOWER BACK PAIN Source of Information: Patient Exam Limitations: No Limitations History of Present Illness Time Seen by Provider: 13:45 Initial Comments To ER his midline low back pain that radiates down the left leg and into the scrotum. This is been ongoing intermittently for a few months now. He was seen here for this months ago. Followed up with his doctor who scheduled him for an outpatient lumbar spine x-rays today but pain was so severe called Dr. Madera who recommended he come to the emergency room. He denies any loss of bowel or bladder control, denies any saddle anesthesia or numbness of his genitals however he does report pain that seems to radiate from his back down into his scrotum. No fevers or chills. Location: Lumbar Spine Timing/Duration: Getting Worse, Intermittent Severity: Moderate Associated Symptoms: lower back pain Allergies and Home Medications Allergies Coded Allergies: iodine (Verified Allergy, Unknown, 05/02/16) CONTRAST MEDIA tramadol (Unverified Allergy, Unknown, RASH, 05/02/16) codeine (Verified Adverse Reaction, Unknown, 03/19/17) Home Medications Aspirin 81 Mg Tablet.dr, 81 MG PO DAILY, (Reported) Atenolol 100 Mg Tablet, 100 MG PO DAILY, (Reported) Cyclobenzaprine HCl 5 Mg Tablet, 5 MG PO TID, #21 Prescribed by: RAF COLES on 04/19/17 1509 Fish Oil/Dha/Epa 1 Each Capsule, 2,400 MG PO DAILY, (Reported) TAKES 2 (1200MG) CAPSULES Hydrocodone/Acetaminophen 1 Each Tablet, 1 EACH PO Q4H PRN for PAIN-SEVERE, #10 Prescribed by: RAF COLES on 03/19/172015 Metformin HCl 500 Mg Tab.er.24h, 1,000 MG PO BID, (Reported) LAST FILLED #120 12-05-16 TAKES 2 (500MG) TABLETS Naproxen 500 Mg Tablet, 500 MG PO BID PRN for PAIN-MILD TO MODERATE, #30 Prescribed by: RAF COLES on 04/19/17 1509 Prednisone 20 Mg Tab, 40 MG PO DAILY, #6 Prescribed by: RAF COLES on 03/19/172015 Constitutional: see HPI EENTM: see HPI Respiratory: no symptoms reported Cardiovascular: no symptoms reported Genitourinary: no symptoms reported Musculoskeletal: see HPI, back pain Skin: no symptoms reported Psychiatric/Neurological: No Symptoms Reported Past Cgtstyd-Xrcfmv-Xspymr Hx Patient Social History Type Used: Cigarettes Recent Foreign Travel: No Contact w/Someone Who Travel: No Recent Hopitalizations: No Immunizations Up To Date Tetanus Booster (TDap): More than 5yrs PED Vaccines UTD: Yes Date of Influenza Vaccine: Jun 13, 2010 Seasonal Allergies Seasonal Allergies: No Surgeries HX Surgeries: Yes Surgeries: Angioplasty, Appendectomy Respiratory Hx Respiratory Disorders: No Cardiovascular Hx Cardiac Disorders: Yes (heart cath in 2005, 02/2011) Cardiac Disorders: Hypertension Neurological Hx Neurological Disorders: No Reproductive System Hx Reproductive Disorders: No Sexually Transmitted Disease: No HIV/AIDS: No Genitourinary Hx Genitourinary Disorders: No Gastrointestinal Hx Gastrointestinal Disorders: No Musculoskeletal Hx Musculoskeletal Disorders: No Endocrine Hx Endocrine Disorders: Yes Endocrine Disorders: Diabetes, Non-Insulin dep HEENT HX ENT Disorders: No Cancer Hx Cancer: No Psychosocial Hx Psychiatric Problems: No Integumentary HX Skin/Integumentary Disorder: No Blood Transfusions Hx Blood Disorders: No Adverse Reaction to a Blood Tr: No Family Medical History Family Medial History: Cardiovascular disease 19 FATHER Diabetes mellitus 19 FATHER Hypertension 19 FATHER MS (multiple sclerosis) 19 FATHER Physical Exam Vital Signs Vital Sign - Last 12Hours 04/19/17 13:40 Temp 97.9 Pulse 75 Resp 18 B/P (MAP) 163/100 Pulse Ox 94 Capillary Refill : General Appearance: No Apparent Distress, WD/WN HEENT: PERRL/EOMI, TMs Normal Neck: Full Range of Motion, Normal Inspection Respiratory: No Accessory Muscle Use, No Respiratory Distress Gastrointestinal: Normal Bowel Sounds, Non Tender, Soft Back: Normal Inspection, No Vertebral Tenderness Extremity: Normal Capillary Refill, Normal Inspection Neurologic/Psychiatric: Alert, Oriented x3, No Motor/Sensory Deficits Skin: Normal Color, Warm/Dry Progress/Results/Core Measures Results/Orders My Orders Orders - RAF COLES APRN Ketorolac Injection (Toradol Injection) (04/19/17 13:45) Morphine Injection (Morphine Injection (04/19/17 13:45) Mri Lumbar Spine W/O Contrast (04/19/17 13:44) Medications Given in ED Current Medications Medications Dose Ordered Sig/Ernesto Route Start Time Stop Time Status Last Admin Dose Admin Ketorolac Tromethamine 60 mg ONCE ONCE IM 04/19/17 13:45 04/19/17 13:46 DC 04/19/17 13:56 60 MG Morphine Sulfate 10 mg ONCE ONCE IM 04/19/17 13:45 04/19/17 13:46 DC 04/19/17 13:56 10 MG Vital Signs/I&O Vital Sign - Last 12Hours 04/19/17 13:40 Temp 97.9 Pulse 75 Resp 18 B/P (MAP) 163/100 Pulse Ox 94 Departure Impression Impression: Primary Impression: Lumbar radiculopathy Additional Impressions: Degenerative disc disease Left l5 neuroforaminal stenosis Disposition: HOME, SELF-CARE Condition: Stable Departure-Patient Inst. Decision time for Depature: 15:07 Referrals: NIK FINK BRIAN J MD KOEHN, DANIEL J MD (PCP/Family) Primary Care Physician Patient Instructions: Low Back Pain (DC), Radiculopathy (DC) Add. Discharge Instructions: 1. Call either Dr. Ryan or Dr. Fink to make an appointment to be seen. These are spine surgeons and can guide you on the best treatment plan for your back pain 2. Follow-up with Dr. Madera for additional guidance on management of your back pain 3. All discharge instructions reviewed with patient and/or family. Voiced understanding. Scripts Naproxen (Naprosyn) 500 Mg Tablet 500 MG PO BID Y for PAIN-MILD TO MODERATE, #30 TAB Prov: RAF COLES APRN 04/19/17 Cyclobenzaprine HCl (Cyclobenzaprine HCl) 5 Mg Tablet 5 MG PO TID, #21 TAB Prov: RAF COLES APRN 04/19/17 Work/School Note: Work Release Form Date Seen in the Emergency Department: Apr 20, 2017 Return to Work: Apr 19, 2017 Copy Copies To 1: DAMARIS MADERA MD, PETER J APRN Apr 19, 2017 13:47
--- NOTE | 2017-04-19 14:58 | Diagnostic Imaging Report ---
PROCEDURE: MRI lumbar spine. TECHNIQUE: Multiplanar, multisequence MRI of the lumbar spine was performed without contrast. INDICATION: Severe back pain worsening over the last three weeks and now the patient is unable to get up. FINDINGS: The alignment of the posterior spinal line is satisfactory. The vertebral body heights are preserved. There is disc desiccation in the mid and lower lumbar spine levels with no significant disc height loss seen. There are multiple focal lesions in the vertebral bodies; the largest is in L5 level measuring 1.5 cm with bright T2 and hypointense T1 signal. These lesions are lobulated in shape and are well defined in favor of benign etiology such as atypical hemangiomas. There is also a Schmorl node along the superior endplate of L3 level. There is bone marrow edema along the lower endplate of L2 in a pattern suggestive of reactive changes from disc disease. To a lesser extent, similar endplate edema findings along the right side of L4-L5 disc level is seen. There are congenital relatively short pedicles resulting in relatively short AP dimension of the spinal canal and neural foramina without congenital spinal canal stenosis. The cauda equina and conus medullaris appear grossly unremarkable. T12-L1: No disc herniation, no spinal canal or foraminal stenosis. L1-L2: No disc herniation. No spinal canal or neural foraminal stenosis. L2-L3: There is no disc herniation. There is mild facet hypertrophy. No central canal, lateral recess or foraminal stenosis. L3-L4: There is a minimal disc bulge and mild facet hypertrophy bilaterally. No central canal stenosis. There is however lateral recess stenosis of mild/ moderate degree only on the right side abutting the descending right L4 nerve root without definite compression. The foramina demonstrate mild stenosis bilaterally with more prominent on the right side. L4-L5: There is diffuse disc bulge and mild/ moderate facet hypertrophy. No central canal stenosis. There is mild/ moderate left lateral recess stenosis abutting the descending left L5 nerve root. The right lateral recess is patent. The foramina demonstrate bilateral mild stenosis. L5-S1: There is no disc herniation. There is mild facet hypertrophy. No central canal or lateral recess stenosis. There is mild left foraminal stenosis of moderate/ severe degree along the medial aspect of each foramen. 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 Dictated by: Dictated on workstation # [id number]
[2017-04-19] MEDS ORDERED: CYCL5TAB PO (15:09)
[2017-04-19] MEDS ORDERED: NAPR500T PO (15:09)
[2017-04-19 15:38] VITALS: BP 163/100
== END 2017-04-19 15:38 | disposition home or self-care (01) ==
LOC: EDUNIT# 13:33 → ER 13:35
DX: M51.16 Intervertebral disc disorders with radiculopathy, lumbar region (principal); M48.06 Spinal stenosis, lumbar region; I10 Essential (primary) hypertension; E11.9 Type 2 diabetes mellitus without complications; Z79.82 Long term (current) use of aspirin; Z82.49 Family history of ischemic heart disease and other diseases of the circulatory system; Z79.84 Long term (current) use of oral hypoglycemic drugs; Z95.1 Presence of aortocoronary bypass graft; Z90.49 Acquired absence of other specified parts of digestive tract
CPT/HCPCS: 72148; 96372; 99284

== ENCOUNTER 2017-08-22 16:35 | Emergency (ER) | payer OTHER ==
[~2017-08-22] VITALS: Ht 180.3 cm; Wt 122.5 kg
[~2017-08-22 16:35] MED LIST changes: +CYCL5TAB PO; +NAPR-1071 PO
--- OUTSIDE RECORDS SUMMARY | 2017-08-22 16:41 | XMS REPORT ---
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
--- OUTSIDE RECORDS SUMMARY | 2017-08-22 16:42 | XMS REPORT ---
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
[2017-08-22] MEDS ORDERED: FENO43CA3 PO (16:51)
[2017-08-22] MEDS ORDERED: NS IV 1000 ML 1,000 ML IV ONE (17:20)
--- NOTE | 2017-08-22 17:36 | ED GU-Male ---
General Chief Complaint: Abdominal/GI Problems Stated Complaint: ABD CRAMPING/NAUSEA Nursing Triage Note: Ambulatory to ED 4 with reports of nausea, abdominal pain and abdominal distention. Denies any vomiting or diarrhea. Source: patient, spouse Exam Limitations: no limitations History of Present Illness Time seen by provider: 17:10 Initial Comments 42-year-old male patient presents to the emergency department with complaints of lower abdominal pain, nausea, and abdominal distention. Denies vomiting, diarrhea, fever, dysuria, frequency, hematuria. Onset today. Timing/Duration: this morning Severity/Quality: cramping Location: suprapubic Radiation: none Activities at Onset: none Prior Genitourinary Problems: none Sexual [place] History: less than 2 months ago, single partner Modifying Factors: Worsens With Movement, Worsens With Palpation Allergies and Home Medications Allergies Coded Allergies: iodine (Verified Allergy, Unknown, 05/02/16) CONTRAST MEDIA tramadol (Unverified Allergy, Unknown, RASH, 05/02/16) codeine (Verified Adverse Reaction, Unknown, 03/19/17) Home Medications Atenolol 100 Mg Tablet, 100 MG PO DAILY, (Reported) Fenofibrate,Micronized 43 Mg Capsule, Unknown Dose PO, (Reported) Metformin HCl 500 Mg Tab.er.24h, 1,000 MG PO BID, (Reported) LAST FILLED #120 12-05-16 TAKES 2 (500MG) TABLETS Constitutional: No chills, No dizziness, No fever, No malaise EENTM: no symptoms reported Respiratory: No cough, No dyspnea on exertion, No phlegm, No short of breath Cardiovascular: No chest pain, No palpitations, No syncope Gastrointestinal: see HPI, abdominal pain (suprapubic abdominal pain), No constipation, No diarrhea, No dysphagia, No hematemesis, No melena, No nausea, No vomiting Genitourinary: see HPI, denies burning, denies discharge, denies dysuria, denies frequency, denies flank pain, denies hematuria, pain Musculoskeletal: No back pain Skin: no symptoms reported Psychiatric/Neurological: No Symptoms Reported All Other Systemes Reviewed Negative Unless Noted: Yes (Negative excepted noted.) Past Jvgmdbw-Pjtjef-Uvevay Hx Patient Social History Alcohol Use: Occasionally Uses Number of Drinks Today: FF Alcohol Beverage of Choice: Beer, Vodka Recreational Drug Use: No Smoking Status: Current Everyday Smoker Type Used: Cigarettes 2nd Hand Smoke Exposure: Yes Recent Foreign Travel: No Contact w/Someone Who Travel: No Recent Infectious Disease Expo: No Recent Hopitalizations: No Physical Abuse: No Sexual Abuse: No Mistreated: No Fear: No Immunizations Up To Date Tetanus Booster (TDap): More than 5yrs PED Vaccines UTD: Yes Date of Influenza Vaccine: Jun 13, 2010 Seasonal Allergies Seasonal Allergies: No Surgeries History of Surgeries: Yes Surgeries: Angioplasty, Appendectomy Respiratory History of Respiratory Disorde: No Currently Using CPAP: No Currently Using BIPAP: No Cardiovascular History of Cardiac Disorders: Yes (2 HEART CATHS, "SMALL ARTERY DISEASE") Cardiac Disorders: Coronary Artery Disease, High Cholesterol, Hypertension Neurological History of Neurological Disord: No Reproductive System Hx Reproductive Disorders: No Sexually Transmitted Disease: No HIV/AIDS: No Genitourinary History of Genitourinary Disor: No Gastrointestinal History of Gastrointestinal Di: No Musculoskeletal History of Musculoskeletal Dis: No Endocrine History of Endocrine Disorders: Yes Endocrine Disorders: Diabetes, Non-Insulin dep HEENT History of HEENT Disorders: No Cancer History of Cancer: No Psychosocial History of Psychiatric Problem: No Suicide Risk Score: 0 Integumentary History of Skin or Integumenta: No Blood Transfusions History of Blood Disorders: No Adverse Reaction to a Blood Tr: No Reviewed Nursing Assessment Reviewed/Agree w Nursing PMH: Yes Family Medical History Significant Family History: No Pertinent Family Hx Family Medial History: Cardiovascular disease 19 FATHER Diabetes mellitus 19 FATHER Hypertension 19 FATHER MS (multiple sclerosis) 19 FATHER Physical Exam Vital Signs Vital Sign - Last 12Hours 08/22/17 16:44 Temp 98.2 Pulse 72 Resp 18 B/P (MAP) 130/61 (84) Pulse Ox 98 O2 Delivery Room Air Capillary Refill : Less Than 3 Seconds General Appearance: WD/WN, no apparent distress HEENT: PERRL/EOMI, pharynx normal Neck: supple, normal inspection Cardiovascular: normal peripheral pulses, regular rate, rhythm, no edema, no murmur Respiratory: lungs clear, normal breath sounds, no respiratory distress, no accessory muscle use Gastrointestinal: normal bowel sounds, soft, no organomegaly, No distended, guarding (left lower quadrant), No rebound, tenderness (suprapubic and left lower quadrant), hernia (reducible hernia at the umbilicus consistent with incisional hernia) Back: normal inspection, no CVA tenderness Extremities: no pedal edema, normal capillary refill Neurologic/Psychiatric: alert, normal mood/affect, oriented x 3 Skin: normal color, warm/dry Progress/Results/Core Measures Suspected Sepsis Recent Fever Within 48 Hours: No Infection Criteria Present: Suspected New Infection New/Unexplained Altered Menta: No Sepsis Screen: No Definite Risk Sepsis Diagnosis: SIRS Temperature:98.2 Pulse: 72 Respiratory Rate: 18 Laboratory Tests 08/22/17 17:35: White Blood Count 8.8 Blood Pressure 130 /61 Mean: 84 Laboratory Tests 08/22/17 17:35: Creatinine 1.00, Platelet Count 188, Total Bilirubin 0.3 Results/Orders Lab Results Laboratory Tests Test 08/22/17 17:29 08/22/17 17:35 Range/Units Urine Color YELLOW Urine Clarity CLEAR Urine pH 6.5 5-9 Urine Specific [place] 1.020 1.016-1.022 Urine Protein NEGATIVE NEGATIVE Urine Glucose (UA) NEGATIVE NEGATIVE Urine Ketones NEGATIVE NEGATIVE Urine Nitrite NEGATIVE NEGATIVE Urine Bilirubin NEGATIVE NEGATIVE Urine Urobilinogen NORMAL NORMAL MG/DL Urine Leukocyte Esterase NEGATIVE NEGATIVE Urine RBC (Auto) NEGATIVE NEGATIVE Urine RBC NONE /HPF Urine WBC NONE /HPF Urine Squamous Epithelial Cells NONE /HPF Urine Crystals NONE /LPF Urine Bacteria FEW H /HPF Urine Casts NONE /LPF Urine Mucus NEGATIVE /LPF Urine Culture Indicated NO White Blood Count 8.8 4.3-11.0 10^3/uL Red Blood Count 5.01 4.35-5.85 10^6/uL Hemoglobin 15.9 13.3-17.7 G/DL Hematocrit 47 40-54 % Mean Corpuscular Volume 94 80-99 FL Mean Corpuscular Hemoglobin 32 25-34 PG Mean Corpuscular Hemoglobin Concent 34 32-36 G/DL Red Cell Distribution Width 12.9 10.0-14.5 % Platelet Count 188 130-400 10^3/uL Mean Platelet Volume 10.8 H 7.4-10.4 FL Neutrophils (%) (Auto) 65 42-75 % Lymphocytes (%) (Auto) 28 12-44 % Monocytes (%) (Auto) 6 0-12 % Eosinophils (%) (Auto) 1 0-10 % Basophils (%) (Auto) 0 0-10 % Neutrophils # (Auto) 5.7 1.8-7.8 X 10^3 Lymphocytes # (Auto) 2.5 1.0-4.0 X 10^3 Monocytes # (Auto) 0.6 0.0-1.0 X 10^3 Eosinophils # (Auto) 0.1 0.0-0.3 10^3/uL Basophils # (Auto) 0.0 0.0-0.1 10^3/uL Sodium Level 139 135-145 MMOL/L Potassium Level 3.9 3.6-5.0 MMOL/L Chloride Level 103 98-107 MMOL/L Carbon Dioxide Level 23 21-32 MMOL/L Anion Gap 13 5-14 MMOL/L Blood Urea Nitrogen 14 7-18 MG/DL Creatinine 1.00 0.60-1.30 MG/DL Estimat Glomerular Filtration Rate > 60 BUN/Creatinine Ratio 14 Glucose Level 109 H 70-105 MG/DL Calcium Level 8.9 8.5-10.1 MG/DL Total Bilirubin 0.3 0.1-1.0 MG/DL Aspartate Amino Transf (AST/SGOT) 20 5-34 U/L Alanine Aminotransferase (ALT/SGPT) 37 0-55 U/L Alkaline Phosphatase 28 L 40-136 U/L Total Protein 7.0 6.4-8.2 GM/DL Albumin 3.9 3.2-4.5 GM/DL Lipase 19 8-78 U/L My Orders Orders - SHARONDA HUTCHINSON Cbc With Automated Diff (08/22/17 17:20) Comprehensive Metabolic Panel (08/22/17 17:20) Lipase (08/22/17 17:20) Ua Culture If Indicated (08/22/17 17:20) Saline Lock/Iv-Start (08/22/17 17:20) Ct Abdomen/Pelvis Wo (08/22/17 17:20) Ns Iv 1000 Ml (Sodium Chloride 0.9%) (08/22/17 17:20) Ketorolac Injection (Toradol Injection) (08/22/17 18:19) Levofloxacin Tablet (Levaquin Tablet) (08/22/17 19:30) Metronidazole Tablet (Flagyl Tablet) (08/22/17 19:30) Rx-Hydrocodone/Apap 5-325 Mg (Rx-Vicodin (08/22/17 19:30) Medications Given in ED Current Medications Medications Dose Ordered Sig/Ernesto Route Start Time Stop Time Status Last Admin Dose Admin Sodium Chloride 1,000 ml @ 0 mls/hr Q0M ONCE IV 08/22/17 17:20 08/22/17 17:22 DC 08/22/17 17:35 0 MLS/HR Vital Signs/I&O Vital Sign - Last 12Hours 08/22/17 16:44 Temp 98.2 Pulse 72 Resp 18 B/P (MAP) 130/61 (84) Pulse Ox 98 O2 Delivery Room Air Capillary Refill : Less Than 3 Seconds Blood Pressure Mean: 84 Diagnostic Imaging Diagonstic Imaging: CT Plain Films/CT/US/NM/MRI: abdomen, pelvis Reviewed: Reviewed by Me (radiology report reviewed by me) Departure Impression Impression: Primary Impression: Abdominal pain Additional Impression: Enteritis Disposition: HOME, SELF-CARE Condition: Improved Departure-Patient Inst. Decision time for Depature: 19:33 Referrals: REY JIMENEZ MD, DANIEL J MD (PCP/Family) Primary Care Physician Patient Instructions: Acute Abdomen (Belly Pain), Adult (DC) Add. Discharge Instructions: All discharge instructions reviewed with patient and/or family. Voiced understanding. Medications as instructed. Ibuprofen 800 mg by mouth every 8 hours as needed for pain. Drink plenty fluids. Clear liquid diet until symptoms improve, then increase diet slowly to a low fiber/residue diet. Follow -up with Dr. Jimenez as an outpatient for a recheck and to schedule outpatient colonoscopy when okayed by Dr. Andrews. Follow-up with your family practitioner for recheck. Return to the emergency department for worsened symptoms or any other concerns. Scripts Ondansetron (Ondansetron Odt) 8 Mg Tab.rapdis 8 MG PO Q6H Y for NAUSEA/VOMITING-1ST LINE, #10 TAB 0 Refills Prov: SHARONDA HUTCHINSON 08/22/17 Hydrocodone/Acetaminophen (Hydrocodon -Acetaminophen 5-325) 1 Each Tablet 1 EACH PO Q4H Y for PAIN, #10 TAB 0 Refills Prov: SHARONDA HUTCHINSON 08/22/17 Metronidazole (Flagyl) 500 Mg Tablet 500 MG PO TID, #21 TAB 0 Refills Prov: SHARONDA HUTCHINSON 08/22/17 Ciprofloxacin HCl (Ciprofloxacin HCl) 500 Mg Tablet 500 MG PO BID, #14 TAB 0 Refills Prov: SHARONDA HUTCHINSON 08/22/17 SHARONDA HUTCHINSON Aug 22, 2017 17:36
[2017-08-22 17:40] LABS: BILIRUBIN,URINE NEGATIVE (NEGATIVE); KETONES,URINE NEGATIVE (NEGATIVE); LEUKOCYTE ESTERASE ,URINE NEGATIVE (NEGATIVE); NITRITE,URINE NEGATIVE (NEGATIVE); PH,URINE 6.5 (5-9); PROTEIN,URINE NEGATIVE (NEGATIVE); UROBILINOGEN,URINE NORMAL (NORMAL)
[2017-08-22 17:45] LABS: BASOPHILS % (AUTO) 0 % (0-10); EOSINOPHILS # (AUTO) 0.1 10^3/uL (0.0-0.3); EOSINOPHILS % (AUTO) 1 % (0-10); LYMPHOCYTES # (AUTO) 2.5 X 10^3 (1.0-4.0); LYMPHOCYTES % (AUTO) 28 % (12-44); MEAN CORPUSCULAR HEMOGLOBIN 32 PG (25-34); MEAN CORPUSCULAR HGB CONC 34 G/DL (32-36); MEAN CORPUSCULAR VOLUME 94 FL (80-99); MEAN PLATELET VOLUME 10.8 FL (7.4-10.4); MONOCYTES # (AUTO) 0.6 X 10^3 (0.0-1.0); MONOCYTES % (AUTO) 6 % (0-12); NEUTROPHILS # (AUTO) 5.7 X 10^3 (1.8-7.8); NEUTROPHILS % (AUTO) 65 % (42-75); PLATELET COUNT 188 10^3/uL (130-400); RED BLOOD COUNT 5.01 10^6/uL (4.35-5.85); RED CELL DISTRIBUTION WIDTH 12.9 % (10.0-14.5); WHITE BLOOD COUNT 8.8 10^3/uL (4.3-11.0)
[2017-08-22 18:03] LABS: ALANINE AMINOTRANSFERASE 37 U/L (0-55); ALBUMIN 3.9 GM/DL (3.2-4.5); ANION GAP 13 MMOL/L (5-14); ASPARTATE AMINO TRANSFERASE 20 U/L (5-34); BILIRUBIN,TOTAL 0.3 MG/DL (0.1-1.0); BLOOD UREA NITROGEN 14 MG/DL (7-18); BUN/CREATININE RATIO 14; CALCIUM 8.9 MG/DL (8.5-10.1); CARBON DIOXIDE 23 MMOL/L (21-32); CHLORIDE 103 MMOL/L (98-107); GFR ESTIMATED > 60; GLUCOSE 109 MG/DL (70-105); LIPASE 19 U/L (8-78); POTASSIUM 3.9 MMOL/L (3.6-5.0); SODIUM 139 MMOL/L (135-145)
--- NOTE | 2017-08-22 18:15 | Diagnostic Imaging Report ---
PROCEDURE: CT abdomen and pelvis without contrast. TECHNIQUE: Multiple contiguous axial images were obtained through the abdomen and pelvis without the use of intravenous contrast. INDICATION: Abdominal cramping and nausea for 12 hours. COMPARISON: 08/31/2013. FINDINGS: The lung bases are clear. No pericardial effusion is seen. The heart is normal in size. No focal hepatic lesions are seen. The spleen appears normal. The pancreas is normal. The right adrenal gland demonstrates a 3 cm nodule, which is decreased in size compared to the prior study, with Hounsfield units of 12, with associated calcification. This likely represents an adenoma and is unchanged since 2012. The left adrenal gland appears normal. The kidneys are normal, bilaterally, without hydronephrosis or hydroureter. No renal calculi are seen. The bowel loops are nondistended. There is no evidence of obstruction. The appendix is absent. There is minimal free fluid in the pelvis. There is mild thickening of the bowel wall in the left abdomen. No free air is seen. There is a small fat-containing right inguinal hernia. No acute osseous abnormality is seen. IMPRESSION: Mild thickening of the bowel wall in the left abdomen, may represent enteritis. There is no evidence of obstruction. There is trace free fluid with no free air present. Dictated by: Dictated on workstation # [id number]
[2017-08-22] MEDS ORDERED: KETOROLAC 30 MG/ML VIAL IVP STA (18:19)
[2017-08-22] MEDS ORDERED: LEVOFLOXACIN 500 MG TAB (LEVAQUIN) PO ONE (19:30)
[2017-08-22] MEDS ORDERED: RX-HYDROCODONE/APAP 5/325 MG #4 TAB PK PO PRN (19:30)
[2017-08-22] MEDS ORDERED: metroNIDAZOLE 500 MG (FLAGYL) TAB PO ONE (19:30)
[2017-08-22] MEDS ORDERED: METR500T PO (19:35)
[2017-08-22] MEDS ORDERED: CIPR500T4 PO (19:35)
[2017-08-22] MEDS ORDERED: HYDR-3812 PO (19:35)
[2017-08-22] MEDS ORDERED: ONDA8TAB13 PO (19:35)
[2017-08-22 19:39] VITALS: BP 120/43
== END 2017-08-22 19:39 | disposition home or self-care (01) ==
LOC: EDUNIT# 16:35 → ER 16:36
DX: K52.9 Noninfective gastroenteritis and colitis, unspecified (principal); I25.10 Atherosclerotic heart disease of native coronary artery without angina pectoris; I10 Essential (primary) hypertension; E78.00 Pure hypercholesterolemia, unspecified; E11.9 Type 2 diabetes mellitus without complications; F17.210 Nicotine dependence, cigarettes, uncomplicated; Z79.84 Long term (current) use of oral hypoglycemic drugs; Z82.49 Family history of ischemic heart disease and other diseases of the circulatory system; Z98.61 Coronary angioplasty status; Z90.49 Acquired absence of other specified parts of digestive tract
CPT/HCPCS: 36415; 74176; 80053; 81000; 83690; 85025

== ENCOUNTER 2017-10-15 11:00 | Outpatient (CLI) | payer OTHER ==
[~2017-10-15 11:00] MED LIST changes: +ACHD5005 PO; +CIPR500T4 PO; +FENO43CA3 PO; +METR500T PO; +ONDA8TAB13 PO
== END 2017-10-15 11:20 | disposition home or self-care (01) ==
LOC: SLEEP 11:00
PROVIDERS: ATTEND Family Medicine
DX: G47.33 Obstructive sleep apnea (adult) (pediatric) (principal); R06.83 Snoring; I10 Essential (primary) hypertension; G47.10 Hypersomnia, unspecified; G47.61 Periodic limb movement disorder

== ENCOUNTER 2018-02-03 15:22 | Emergency (ER) | payer OTHER ==
[~2018-02-03] VITALS: Ht 180.3 cm; Wt 122.5 kg
--- NOTE | 2018-02-03 15:59 | ED General ---
General Chief Complaint: Bite-Animal/Human/Insect Stated Complaint: NEEDS TICK REMOVED Nursing Triage Note: AMBULATED TO ROOM 06 WITHOUT DIFFICULTY. STATES HE NOTICED A TICK STUCK TO THE HEAD OF HIS PENIS TODAY AND IS UNABLE TO REMOVE IT. COMPLAINS OF HEAD/NECK PAIN THAT STARTED A COUPLE DAYS AGO. Nursing Sepsis Screen: No Definite Risk History of Present Illness Date Seen by Provider: February 03, 2018 Time Seen by Provider: 15:54 Initial Comments Patient is a 42-year-old male who presents to emergency room with a tick that is embedded in the head of his penis. He reports today being the first day he noticed the tick and denies any fevers, body aches, malaise, rashes. Timing/Duration: 1 Day Severity: Mild Associated Systoms: Denies Symptoms Allergies and Home Medications Allergies Coded Allergies: iodine (Verified Allergy, Unknown, 05/02/16) CONTRAST MEDIA tramadol (Unverified Allergy, Unknown, RASH, 05/02/16) codeine (Verified Adverse Reaction, Unknown, 03/19/17) Home Medications Atenolol 100 Mg Tablet, 100 MG PO DAILY, (Reported) Ciprofloxacin HCl 500 Mg Tablet, 500 MG PO BID Prescribed by: SHARONDA HUTCHINSON on 08/22/171934 Hydrocodone Bit/Acetaminophen 1 Each Tablet, 1 EACH PO Q4H PRN for PAIN Prescribed by: SHARONDA HUTCHINSON on 08/22/171934 Metformin HCl 500 Mg Tab.er.24h, 1,000 MG PO BID, (Reported) LAST FILLED #120 12-05-16 TAKES 2 (500MG) TABLETS Metronidazole 500 Mg Tablet, 500 MG PO TID Prescribed by: SHARONDA HUTCHINSON on 08/22/171934 Ondansetron 8 Mg Tab.rapdis, 8 MG PO Q6H PRN for NAUSEA/VOMITING-1ST LINE Prescribed by: SHARONDA HUTCHINSON on 08/22/171934 Patient Home Medication List Home Medication List Reviewed: Yes Review of Systems Constitutional: no symptoms reported, see HPI EENTM: see HPI Respiratory: see HPI, cough Cardiovascular: see HPI Gastrointestinal: see HPI Genitourinary: see HPI Musculoskeletal: see HPI Skin: see HPI, other ( tick embedded in the head of the penis) Psychiatric/Neurological: See HPI Hematologic/Lymphatic: See HPI Immunological/Allergic: see HPI Past Ununjlc-Qxrzoa-Ralipp Hx Past Med/Social Hx: Reviewed Nursing Past Med/Soc Hx Patient Social History Alcohol Use: Occasionally Uses Alcohol Beverage of Choice: Beer, Vodka Recreational Drug Use: No Smoking Status: Never a Smoker Type Used: Cigarettes 2nd Hand Smoke Exposure: Yes Recent Foreign Travel: No Contact w/Someone Who Travel: No Recent Infectious Disease Expo: No Recent Hopitalizations: No Immunizations Up To Date Tetanus Booster (TDap): More than 5yrs PED Vaccines UTD: Yes Date of Influenza Vaccine: Jun 13, 2010 Seasonal Allergies Seasonal Allergies: No Past Medical History Surgeries: Yes Angioplasty, Appendectomy Respiratory: No Currently Using CPAP: No Currently Using BIPAP: No Cardiac: Yes (2 HEART CATHS, "SMALL ARTERY DISEASE") Coronary Artery Disease, High Cholesterol, Hypertension Neurological: No Reproductive Disorders: No Sexually Transmitted Disease: No HIV/AIDS: No Genitourinary: No Gastrointestinal: No Musculoskeletal: No Endocrine: Yes Diabetes, Non-Insulin dep HEENT: No Cancer: No Psychosocial: No Integumentary: No Blood Disorders: No Adverse Reaction/Blood Tranf: No Family Medical History Reviewed Nursing Family Hx Cardiovascular disease 19 FATHER Diabetes mellitus 19 FATHER Hypertension 19 FATHER MS (multiple sclerosis) 19 FATHER No Pertinent Family Hx Physical Exam Vital Signs Vital Signs - First Documented 02/03/18 15:34 Temp 97.8 Pulse 71 Resp 18 B/P (MAP) 139/78 (98) Pulse Ox 96 O2 Delivery Room Air Capillary Refill : Less Than 3 Seconds General Appearance: No Apparent Distress, WD/WN Eyes: Bilateral Eye PERRL HEENT: PERRL/EOMI, TMs Normal, Normal ENT Inspection, Pharynx Normal Neck: Full Range of Motion, Normal Inspection, Non Tender, Supple Respiratory: Chest Non Tender, Lungs Clear, Normal Breath Sounds, No Accessory Muscle Use, No Respiratory Distress Cardiovascular: Regular Rate, Rhythm, No Edema, No Gallop, No JVD, No Murmur, Normal Peripheral Pulses Gastrointestinal: Normal Bowel Sounds, No Organomegaly, No Pulsatile Mass, Non Tender, Soft Genital/Rectal: Normal Genital Exam, Other (tick embedded in the head of the penis) Back: Normal Inspection, No CVA Tenderness, No Vertebral Tenderness Extremity: Normal Capillary Refill, Normal Inspection, Normal Range of Motion, Non Tender, No Calf Tenderness, No Pedal Edema Neurologic/Psychiatric: Alert, Oriented x3, Normal Mood/Affect Skin: Normal Color, Warm/Dry Lymphatic: No Adenopathy Procedures/Interventions I&D : Site: head of the penis Progress The tick was removed with hemostats without difficulty and the head of the tick was intact. Progress/Results/Core Measures Suspected Sepsis Recent Fever Within 48 Hours: No Infection Criteria Present: None New/Unexplained Altered Menta: No Sepsis Screen: No Definite Risk SIRS Temperature:97.8 Pulse: 71 Respiratory Rate: 18 Blood Pressure 139 /78 Mean: 98 Results/Orders Vital Signs/I&O 02/03/18 15:34 Temp 97.8 Pulse 71 Resp 18 B/P (MAP) 139/78 (98) Pulse Ox 96 O2 Delivery Room Air Capillary Refill : Less Than 3 Seconds Blood Pressure Mean: 98 Departure Impression Primary Impression: Tick bite Disposition: 01 HOME, SELF-CARE Condition: Stable/Unchanged Departure-Patient Inst. Decision time for Depature: 16:05 Referrals: DAMARIS MADERA MD (PCP/Family) Primary Care Physician Patient Instructions: Insect Bites and Stings (DC) Add. Discharge Instructions: All discharge instructions reviewed with patient and/or family. Voiced understanding. Returned back to the emergency room for any signs of tickborne illnesses such as fever, malaise, rashes, or any other concerns as needed. Follow-up with her doctor for recheck within 1 week, call tomorrow for appointment time. RAF COLES APRN February 03, 2018 15:59
[2018-02-03 16:17] VITALS: BP 139/78
== END 2018-02-03 16:17 | disposition home or self-care (01) ==
LOC: EDUNIT# 15:22 → ER 15:23
DX: S30.862A Insect bite (nonvenomous) of penis, initial encounter (principal); I25.10 Atherosclerotic heart disease of native coronary artery without angina pectoris; E78.00 Pure hypercholesterolemia, unspecified; I10 Essential (primary) hypertension; E11.9 Type 2 diabetes mellitus without complications; Z82.49 Family history of ischemic heart disease and other diseases of the circulatory system; Z88.6 Allergy status to analgesic agent; Z88.5 Allergy status to narcotic agent; Z91.041 Radiographic dye allergy status; Z79.84 Long term (current) use of oral hypoglycemic drugs; Z77.22 Contact with and (suspected) exposure to environmental tobacco smoke (acute) (chronic); Z90.49 Acquired absence of other specified parts of digestive tract; Z98.61 Coronary angioplasty status; W57.XXXA Bitten or stung by nonvenomous insect and other nonvenomous arthropods, initial encounter
CPT/HCPCS: 99283

== ENCOUNTER 2018-05-17 18:24 | Emergency (ER) | payer OTHER ==
[~2018-05-17] VITALS: Ht 180.3 cm; Wt 122.5 kg
[~2018-05-17 18:24] MED LIST changes: +HYDR-4226 PO; -HYDR-757 PO
[2018-05-17] MEDS ORDERED: ONDANSETRON 4 MG/2 ML (SDV) Z0FRAN IVP ONE (19:00)
[2018-05-17 19:07] LABS: BASOPHILS % (AUTO) 0 % (0-10); EOSINOPHILS # (AUTO) 0.1 10^3/uL (0.0-0.3); EOSINOPHILS % (AUTO) 1 % (0-10); HEMATOCRIT 45 % (40-54); HEMOGLOBIN 15.6 G/DL (13.3-17.7); LYMPHOCYTES # (AUTO) 2.8 X 10^3 (1.0-4.0); LYMPHOCYTES % (AUTO) 30 % (12-44); MEAN CORPUSCULAR HEMOGLOBIN 32 PG (25-34); MEAN CORPUSCULAR HGB CONC 34 G/DL (32-36); MEAN CORPUSCULAR VOLUME 93 FL (80-99); MEAN PLATELET VOLUME 10.8 FL (7.4-10.4); MONOCYTES # (AUTO) 0.8 X 10^3 (0.0-1.0); MONOCYTES % (AUTO) 8 % (0-12); NEUTROPHILS # (AUTO) 5.5 X 10^3 (1.8-7.8); NEUTROPHILS % (AUTO) 60 % (42-75); PLATELET COUNT 232 10^3/uL (130-400); RED BLOOD COUNT 4.88 10^6/uL (4.35-5.85); RED CELL DISTRIBUTION WIDTH 13.2 % (10.0-14.5); WHITE BLOOD COUNT 9.2 10^3/uL (4.3-11.0)
[2018-05-17] MEDS ORDERED: IOHEXOL 350 MG/ML 100 ML (OMNIPAQUE 350) VIAL IV ONE (19:15)
[2018-05-17 19:19] LABS: ALANINE AMINOTRANSFERASE 35 U/L (0-55); ALBUMIN 4.4 GM/DL (3.2-4.5); ALKALINE PHOSPHATASE 29 U/L (40-136); BILIRUBIN,TOTAL 0.3 MG/DL (0.1-1.0); CALCIUM 9.7 MG/DL (8.5-10.1); CARBON DIOXIDE 23 MMOL/L (21-32); CHLORIDE 102 MMOL/L (98-107); GLUCOSE 90 MG/DL (70-105); POTASSIUM 4.4 MMOL/L (3.6-5.0); SODIUM 134 MMOL/L (135-145); TOTAL PROTEIN 7.5 GM/DL (6.4-8.2)
[2018-05-17 19:26] LABS: FIBRIN DEGRADATION PRODUCTS 0.37 UG/ML (0.00-0.49); INR 0.9 (0.8-1.4); PROTHROMBIN TIME PATIENT 12.4 SEC (12.2-14.7)
--- NOTE | 2018-05-17 19:37 | Diagnostic Imaging Report ---
EXAM: CHEST 1 VIEW, AP/PA ONLY. INDICATION: Stroke protocol. COMPARISON: Chest radiograph 01/25/2017. FINDINGS: Normal heart size and pulmonary vascularity. No focal pulmonary opacity, pleural effusion, or pneumothorax. No acute osseous findings. IMPRESSION: Negative chest. Dictated by: Dictated on workstation # [id number]
[2018-05-17 19:40] LABS: BILIRUBIN,URINE NEGATIVE (NEGATIVE); CLARITY,URINE CLEAR; COLOR,URINE YELLOW; GLUCOSE, URINE (UA) NEGATIVE (NEGATIVE); KETONES,URINE NEGATIVE (NEGATIVE); LEUKOCYTE ESTERASE ,URINE NEGATIVE (NEGATIVE); NITRITE,URINE NEGATIVE (NEGATIVE); PH,URINE 7 (5-9); PROTEIN,URINE NEGATIVE (NEGATIVE); UROBILINOGEN,URINE NORMAL (NORMAL)
--- NOTE | 2018-05-17 19:40 | ED Neurological Problem ---
General Chief Complaint: Neuro-Stroke Like Symptoms Stated Complaint: CP, FACIAL NUMBNESS, R ARM PAIN Nursing Triage Note: thirty minutes ago pt began to develope pressure in his head with numbness to the R side of his face and arm. Nursing Sepsis Screen: No Definite Risk Source: patient Exam Limitations: no limitations History of Present Illness Date Seen by Provider: May 17, 2018 Time Seen by Provider: 18:46 Initial Comments This 43 year old man presents to the ER via private vehicle with complaints of right sided "heaviness" that started approximately 30 min prior to arrival which would make his last known well time approximately 17:55. Patient states the heaviness seems to affect his right upper and lower extremity as well as his face. He also complains of some headache. Patient reports drinking very heavily over the holiday weekend for the past 3 days. The female eye surgeon with him states she believes he drank up to four or five 30 packs of beer over the 3 day weekend. Patient states he frequently drinks on the weekends and sometimes very heavily. His last alcohol consumption was yesterday. Patient also complained of some chest heaviness while he was at work when the symptoms started. That has improved now. Patient is able to ambulate on his own power. Stroke activation was paged after my assessment. Allergies and Home Medications Allergies Coded Allergies: iodine (Verified Allergy, Unknown, 05/17/18) CONTRAST MEDIA tramadol (Unverified Allergy, Unknown, RASH, 05/17/18) codeine (Verified Adverse Reaction, Unknown, 05/17/18) Home Medications Atenolol 100 Mg Tablet, 100 MG PO DAILY, (Reported) Ciprofloxacin HCl 500 Mg Tablet, 500 MG PO BID Prescribed by: SHARONDA HUTCHINSON on 08/22/171934 Hydrocodone Bit/Acetaminophen 1 Each Tablet, 1 EACH PO Q4H PRN for PAIN Prescribed by: SHARONDA HUTCHINSON on 08/22/171934 Metformin HCl 500 Mg Tab.er.24h, 1,000 MG PO BID, (Reported) LAST FILLED #120 12-05-16 TAKES 2 (500MG) TABLETS Metronidazole 500 Mg Tablet, 500 MG PO TID Prescribed by: SHARONDA HUTCHINSON on 08/22/171934 Ondansetron 8 Mg Tab.rapdis, 8 MG PO Q6H PRN for NAUSEA/VOMITING-1ST LINE Prescribed by: SHARONDA HUTCHINSON on 08/22/171934 Patient Home Medication List Home Medication List Reviewed: Yes Review of Systems Review of Systems Constitutional: no symptoms reported Eyes: No Symptoms Reported Ears, Nose, Mouth, Throat: no symptoms reported Respiratory: no symptoms reported Cardiovascular: see HPI Gastrointestinal: no symptoms reported Genitourinary: no symptoms reported Musculoskeletal: no symptoms reported Skin: no symptoms reported Psychiatric/Neurological: See HPI Endocrine: No Symptoms Reported Hematologic/Lymphatic: No Symptoms Reported Past Tbyphfb-Tqsrae-Kbibnr Hx Past Med/Social Hx: Reviewed Nursing Past Med/Soc Hx Patient Social History Alcohol Beverage of Choice: Beer, Vodka Type Used: Cigarettes 2nd Hand Smoke Exposure: Yes Recent Foreign Travel: No Contact w/Someone Who Travel: No Recent Infectious Disease Expo: No Recent Hopitalizations: No Immunizations Up To Date Tetanus Booster (TDap): More than 5yrs PED Vaccines UTD: Yes Date of Influenza Vaccine: Jun 13, 2010 Seasonal Allergies Seasonal Allergies: No Past Medical History Surgeries: Yes Angioplasty, Appendectomy Respiratory: No Currently Using CPAP: No Currently Using BIPAP: No Cardiac: Yes (2 HEART CATHS, "SMALL ARTERY DISEASE") Coronary Artery Disease, High Cholesterol, Hypertension Neurological: No Reproductive Disorders: No Sexually Transmitted Disease: No HIV/AIDS: No Genitourinary: No Gastrointestinal: No Musculoskeletal: No Endocrine: Yes Diabetes, Non-Insulin dep HEENT: No Cancer: No Psychosocial: No Integumentary: No Blood Disorders: No Adverse Reaction/Blood Tranf: No Family Medical History Reviewed Nursing Family Hx Cardiovascular disease 19 FATHER Diabetes mellitus 19 FATHER Hypertension 19 FATHER MS (multiple sclerosis) 19 FATHER No Pertinent Family Hx Physical Exam Vital Signs Vital Signs - First Documented 05/17/18 18:30 Temp 98.4 Pulse 65 Resp 20 B/P (MAP) 151/71 (97) Pulse Ox 97 O2 Delivery Room Air Capillary Refill : Less Than 3 Seconds Height, Weight, BMI Height: 5'11.00" Weight: 270lbs. 3.0oz. 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, alert, normal mood/affect, oriented x 3, motor weakness (Very subtle weakness detectable in the 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 coat 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 and right leg) Crainal Nerves: normal hearing, normal speech, PERRL Coordination/Gait: normal finger to nose, abnormal gait (Slight limp) Skin: normal color, warm/dry Stroke NIH Stroke Scale Assessment Select: Initial Level of Consciousness: 0=Alert (0), Level of Consciousness- Questions: 0=Answers both month/age (0), LOC Commands: 0=Performs both tasks (0) , Visual Arellano: 0=No visual loss (0), Facial Movement (Facial Paresis): 0= Normal symmetrical mnt (0), Motor Function-Arms Right: 0=No drift (0), Motor Function-Arms Left: 0=No drift (0), Motor Function-Legs Right: 0=No drift (0), Motor Function-Legs Left: 0=No drift (0), Limb Ataxia: 0=Absent (0), Sensory: 0= Normal:no loss (0), Best Language: 0=No aphasia (0), Dysarthria: 0=Normal (0), Extinction & Inattention: 0=No abnormality (0), Total: 0 Progress/Results/Core Measures Results/Orders Lab Results Laboratory Tests Test 05/17/18 18:36 05/17/18 18:49 05/17/18 19:30 05/17/18 23:26 Range/Units White Blood Count 9.2 4.3-11.0 10^3/uL Red Blood Count 4.88 4.35-5.85 10^6/uL Hemoglobin 15.6 13.3-17.7 G/DL Hematocrit 45 40-54 % Mean Corpuscular Volume 93 80-99 FL Mean Corpuscular Hemoglobin 32 25-34 PG Mean Corpuscular Hemoglobin Concent 34 32-36 G/DL Red Cell Distribution Width 13.2 10.0-14.5 % Platelet Count 232 130-400 10^3/uL Mean Platelet Volume 10.8 H 7.4-10.4 FL Neutrophils (%) (Auto) 60 42-75 % Lymphocytes (%) (Auto) 30 12-44 % Monocytes (%) (Auto) 8 0-12 % Eosinophils (%) (Auto) 1 0-10 % Basophils (%) (Auto) 0 0-10 % Neutrophils # (Auto) 5.5 1.8-7.8 X 10^3 Lymphocytes # (Auto) 2.8 1.0-4.0 X 10^3 Monocytes # (Auto) 0.8 0.0-1.0 X 10^3 Eosinophils # (Auto) 0.1 0.0-0.3 10^3/uL Basophils # (Auto) 0.0 0.0-0.1 10^3/uL Prothrombin Time 12.4 12.2-14.7 SEC INR Comment 0.9 0.8-1.4 Activated Partial Thromboplast Time 30 24-35 SEC D-Dimer 0.37 0.00-0.49 UG/ML Sodium Level 134 L 135-145 MMOL/L Potassium Level 4.4 3.6-5.0 MMOL/L Chloride Level 102 98-107 MMOL/L Carbon Dioxide Level 23 21-32 MMOL/L Anion Gap 9 5-14 MMOL/L Blood Urea Nitrogen 14 7-18 MG/DL Creatinine 0.94 0.60-1.30 MG/DL Estimat Glomerular Filtration Rate > 60 BUN/Creatinine Ratio 15 Glucose Level 90 70-105 MG/DL Calcium Level 9.7 8.5-10.1 MG/DL Corrected Calcium 9.4 8.5-10.1 MG/DL Total Bilirubin 0.3 0.1-1.0 MG/DL Aspartate Amino Transf (AST/SGOT) 19 5-34 U/L Alanine Aminotransferase (ALT/SGPT) 35 0-55 U/L Alkaline Phosphatase 29 L 40-136 U/L Troponin I < 0.30 < 0.30 <0.30 NG/ML Total Protein 7.5 6.4-8.2 GM/DL Albumin 4.4 3.2-4.5 GM/DL Glucometer 91 70-110 MG/DL Urine Color YELLOW Urine Clarity CLEAR Urine pH 7 5-9 Urine Specific [place] 1.010 L 1.016-1.022 Urine Protein NEGATIVE NEGATIVE Urine Glucose (UA) NEGATIVE NEGATIVE Urine Ketones NEGATIVE NEGATIVE Urine Nitrite NEGATIVE NEGATIVE Urine Bilirubin NEGATIVE NEGATIVE Urine Urobilinogen NORMAL NORMAL MG/DL Urine Leukocyte Esterase NEGATIVE NEGATIVE Urine RBC (Auto) NEGATIVE NEGATIVE Urine RBC NONE /HPF Urine WBC NONE /HPF Urine Squamous Epithelial Cells RARE /HPF Urine Crystals NONE /LPF Urine Bacteria NONE /HPF Urine Casts NONE /LPF Urine Mucus NEGATIVE /LPF Urine Culture Indicated NO Urine Opiates Screen NEGATIVE NEGATIVE Urine Oxycodone Screen NEGATIVE NEGATIVE Urine Methadone Screen NEGATIVE NEGATIVE Urine Propoxyphene Screen NEGATIVE NEGATIVE Urine Barbiturates Screen NEGATIVE NEGATIVE Ur Tricyclic Antidepressants Screen NEGATIVE NEGATIVE Urine Phencyclidine Screen NEGATIVE NEGATIVE Urine Amphetamines Screen NEGATIVE NEGATIVE Urine Methamphetamines Screen NEGATIVE NEGATIVE Urine Benzodiazepines Screen NEGATIVE NEGATIVE Urine Cocaine Screen NEGATIVE NEGATIVE Urine Cannabinoids Screen NEGATIVE NEGATIVE Serum Alcohol < 10 <10 MG/DL My Orders Orders - MYNOR WEST MD Cbc With Automated Diff (05/17/18 18:58) Protime With Inr (05/17/18 18:58) Partial Thromboplastin Time (05/17/18 18:58) Comprehensive Metabolic Panel (05/17/18 18:58) Fibrin Degradation Products (05/17/18 18:58) Troponin I (05/17/18 18:58) Ua Culture If Indicated (05/17/18 18:58) Chest 1 View, Ap/Pa Only (05/17/18 18:58) Ekg Tracing (05/17/18 18:58) Accucheck Stat ONCE (05/17/18 18:58) Saline Lock/Iv-Start (05/17/18 18:58) Saline Lock/Iv-Start (05/17/18 18:58) Vital Signs Stroke Patient Q15M (05/17/18 18:58) O2 (05/17/18 18:58) Intake & Output 06,14,22 (05/17/18 18:58) Monitor-Rhythm Ecg Trace Only (05/17/18 18:58) Dysphagia Screening Tool (05/17/18 18:58) Post Thrombolytic Adminstratio (05/17/18 18:58) Ct Angio Head/Neck (05/17/18 18:58) Ondansetron Injection (Zofran Injectio (05/17/18 19:00) Iohexol Injection (Omnipaque 350 Mg/Ml 1 (05/17/18 19:15) Alcohol (05/17/18 19:40) Drug Screen Stat (Urine) (05/17/18 19:40) Troponin I (05/18/18 21:04) Medications Given in ED Vital Signs/I&O 05/17/18 05/18/18 18:30 00:50 Temp 98.4 97.1 Pulse 65 55 Resp 20 18 B/P (MAP) 151/71 (97) 124/60 (97) Pulse Ox 97 96 O2 Delivery Room Air Room Air Blood Pressure Mean: 97 FSBG Bedside Testing Finger Stick Blood Glucose: 91 Progress Progress Note : Progress Note Stroke activation was paged due to the very subtle weakness on the right side nature of complaints. CT angiogram was obtained and showed no acute findings to correlate with symptoms. Dr. Modi, stroke neurologist at [facility], was consulted at 20:26. He agreed that TPA was not indicated because deficits were very minor and NIH stroke score was zero. A small lacunar stroke was not completely ruled out an MRI was recommended and follow up at some point. Patient's significant binge drinking complicates his case. Patient was ultimately dismissed home for outpatient follow-up. Initial ECG Impression Date: May 17, 2018 Initial ECG Impression Time: 18:40 Initial ECG Rate: 62 Initial ECG Rhythm: Normal Sinus Initial ECG Intervals: Normal Initial ECG Impression: Normal Comment Normal sinus rhythm with no ST elevation or depression. No abnormal intervals or axis deviation. Diagnostic Imaging Diagonstic Imaging: CT Plain Films/CT/US/NM/MRI: head Comments CT angiogram head and neck viewed by me and report reviewed. See report below: NAME: BRIAN KONG MED REC#: [id number] PT STATUS: REG ER : 1975 PHYSICIAN: MYNOR WEST MD ADMIT DATE: 05/17/18/ER Signed Date of Exam: 05/17/18 CT ANGIO HEAD/NECK PROCEDURE: CT angiography of the head and CT angiography of the neck with and without contrast. TECHNIQUE: Contiguous noncontrast images were obtained from the skull base through the vertex. After intravenous contrast administration, helical CT angiography of the neck was performed. Source data was reformatted into multiple MIP projections. Delayed post contrast acquisition was also obtained. INDICATION: Right-sided facial numbness. Right upper and lower extremity weakness. Headache. COMPARISON: None. FINDINGS: Noncontrast head CT demonstrates no CT evidence of an acute infarction. No intracranial hemorrhage, mass effect, hydrocephalus, or extra-axial fluid collections. Osseous structures are intact. Moderate mucosal thickening in the floor of the maxillary sinuses. The mastoids are clear. Delayed postcontrast imaging of the brain demonstrates no abnormal intracranial enhancement. CTA demonstrates a conventional aortic arch. The basilar, bilateral vertebral, carotid, anterior cerebral, middle cerebral, and posterior cerebral arteries are widely patent without evidence of aneurysm or dissection. Diminutive or absent posterior communicating arteries. The superior, anterior inferior, and left posterior inferior arteries are patent. A right posterior inferior cerebellar artery is not seen. The dural venous sinuses are grossly patent. No substantial spondylotic changes in the cervical spine. The visualized paravertebral soft tissues are unremarkable. The lung apices are clear. IMPRESSION: 1. No acute intracranial CT findings. No abnormal intracranial enhancement. 2. The right posterior inferior cerebellar artery is not well seen and may be a normal variant. No evidence of infarct in the right cerebellum. 3. CTA of the head and neck is otherwise normal. Dictated by: Dictated on workstation # [id number] Dict: 05/17/181935 Trans: 05/17/182228 Interpreted by: ELISA MORROW MD Electronically signed by: ELISA MORROW MD 05/17/182228 Diagonstic Imaging: Xray Plain Films/CT/US/NM/MRI: chest Comments Chest x-ray viewed by me and report reviewed. See report below: NAME: BRIAN KONG MED REC#: [id number] PT STATUS: REG ER : 1975 PHYSICIAN: MYNOR WEST MD ADMIT DATE: 05/17/18/ER Signed Date of Exam: 05/17/18 CHEST 1 VIEW, AP/PA ONLY EXAM: CHEST 1 VIEW, AP/PA ONLY. INDICATION: Stroke protocol. COMPARISON: Chest radiograph 01/25/2017. FINDINGS: Normal heart size and pulmonary vascularity. No focal pulmonary opacity, pleural effusion, or pneumothorax. No acute osseous findings. IMPRESSION: Negative chest. Dictated by: Dictated on workstation # [id number] Dict: 05/17/181934 Trans: 05/17/182228 Interpreted by: ELISA MORROW MD Electronically signed by: ELISA MORROW MD 05/17/18 2229 Departure Impression Primary Impression: Chest pain Qualified Codes: R07.9 - Chest pain, unspecified Additional Impressions: Paresthesia of right arm and leg Right facial numbness Disposition: 01 HOME, SELF-CARE Condition: Improved Departure-Patient Inst. Referrals: DAMARIS MADERA MD (PCP/Family) Primary Care Physician Patient Instructions: Chest Pain, Paresthesias (DC) Add. Discharge Instructions: Follow-up with Dr. Madera and Dr. Moreno as soon as possible. Take aspirin 81 mg daily until otherwise instructed. Work toward cessation of alcohol and tobacco. Seek assistance from your primary care provider if needed. Return to the ER immediately if you have any worsening of symptoms. All discharge instructions reviewed with patient and/or family. Voiced understanding. Work/School Note: Work Release Form Date Seen in the Emergency Department: May 17, 2018 Return to Work: May 18, 2018 Restrictions: No Restrictions Copy Copies To 1: DAMARIS MADERA MD, JOSHUA T MD May 17, 2018 19:40
[2018-05-17 19:45] LABS: BUN/CREATININE RATIO 15; CREATININE SERUM 0.94 MG/DL (0.60-1.30); GFR ESTIMATED > 60
[2018-05-17 19:46] LABS: SQUAMOUS EPITHELIAL CELL,UR RARE /HPF
--- NOTE | 2018-05-17 19:51 | Diagnostic Imaging Report ---
PROCEDURE: CT angiography of the head and CT angiography of the neck with and without contrast. TECHNIQUE: Contiguous noncontrast images were obtained from the skull base through the vertex. After intravenous contrast administration, helical CT angiography of the neck was performed. Source data was reformatted into multiple MIP projections. Delayed post contrast acquisition was also obtained. INDICATION: Right-sided facial numbness. Right upper and lower extremity weakness. Headache. COMPARISON: None. FINDINGS: Noncontrast head CT demonstrates no CT evidence of an acute infarction. No intracranial hemorrhage, mass effect, hydrocephalus, or extra-axial fluid collections. Osseous structures are intact. Moderate mucosal thickening in the floor of the maxillary sinuses. The mastoids are clear. Delayed postcontrast imaging of the brain demonstrates no abnormal intracranial enhancement. CTA demonstrates a conventional aortic arch. The basilar, bilateral vertebral, carotid, anterior cerebral, middle cerebral, and posterior cerebral arteries are widely patent without evidence of aneurysm or dissection. Diminutive or absent posterior communicating arteries. The superior, anterior inferior, and left posterior inferior arteries are patent. A right posterior inferior cerebellar artery is not seen. The dural venous sinuses are grossly patent. No substantial spondylotic changes in the cervical spine. The visualized paravertebral soft tissues are unremarkable. The lung apices are clear. IMPRESSION: 1. No acute intracranial CT findings. No abnormal intracranial enhancement. 2. The right posterior inferior cerebellar artery is not well seen and may be a normal variant. No evidence of infarct in the right cerebellum. 3. CTA of the head and neck is otherwise normal. Dictated by: Dictated on workstation # [id number]
[2018-05-17 20:00] LABS: AMPHETAMINE SCREEN, URINE NEGATIVE (NEGATIVE); BARBITURATE SCREEN URINE NEGATIVE (NEGATIVE); BENZODIAZEPINES SCREEN URINE NEGATIVE (NEGATIVE); CANNABINOID SCREEN, URINE NEGATIVE (NEGATIVE); COCAINE SCREEN URINE NEGATIVE (NEGATIVE); METHADONE STAT NEGATIVE (NEGATIVE); METHAMPHETAMINE SCREEN URINE S NEGATIVE (NEGATIVE); OPIATE SCREEN URINE NEGATIVE (NEGATIVE); OXYCODONE STAT NEGATIVE (NEGATIVE); PROPOXYPHENE STAT NEGATIVE (NEGATIVE); TRICYCLIC ANTIDEPRESSANTS SCRE NEGATIVE (NEGATIVE)
[2018-05-18 00:50] VITALS: BP 124/60
--- OUTSIDE RECORDS SUMMARY | 2018-05-18 03:05 | XMS REPORT | Continuity of Care Document ---
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 Automated erythrocyte distribution width ratio 12.9 % 10.0-14.5 Automated blood platelet count (count/volume) 188 10*3/uL 130-400 Automated blood platelet mean volume measurement 10.8 [foz_us] 7.4-10.4 Automated blood neutrophils/100 leukocytes 65 % 42-75 Automated blood lymphocytes/100 leukocytes 28 % 12-44 Blood monocytes/100 leukocytes 6 % 0-12 Automated blood eosinophils/100 leukocytes 1 % 0-10 Automated blood basophils/100 leukocytes 0 % 0-10 Blood neutrophils automated count (number/volume) 5.7 10*3 1.8-7.8 Blood lymphocytes automated count (number/volume) 2.5 10*3 1.0-4.0 Blood monocytes automated count (number/volume) 0.6 10*3 0.0-1.0 Automated eosinophil count 0.1 10*3/uL 0.0-0.3 Automated blood basophil count (count/volume) 0.0 10*3/uL 0.0-0.1 Comprehensive metabolic panel - 08/22/17 17:35 Serum or plasma sodium measurement (moles/volume) 139 mmol/L 135-145 Serum or plasma potassium measurement (moles/volume) 3.9 mmol/L 3.6-5.0 Serum or plasma chloride measurement (moles/volume) 103 mmol/L 98-107 Carbon dioxide 23 mmol/L 21-32 Serum or plasma anion gap determination (moles/volume) 13 mmol/L 5-14 Serum or plasma urea nitrogen measurement (mass/volume) 14 mg/dL 7-18 Serum or plasma creatinine measurement (mass/volume) 1.00 mg/dL 0.60-1.30 Serum or plasma urea nitrogen/creatinine mass ratio 14 NRG Serum or plasma creatinine measurement with calculation of estimated glomerular filtration rate > NRG Serum or plasma glucose measurement (mass/volume) 109 mg/dL 70-105 Serum or plasma calcium measurement (mass/volume) 8.9 mg/dL 8.5-10.1 Serum or plasma total bilirubin measurement (mass/volume) 0.3 mg/dL 0.1-1.0 Serum or plasma alkaline phosphatase measurement (enzymatic activity/volume) 28 U/L 40-136 Serum or plasma aspartate aminotransferase measurement (enzymatic activity/ volume) 20 U/L 5-34 Serum or plasma alanine aminotransferase measurement (enzymatic activity/volume ) 37 U/L 0-55 Serum or plasma protein measurement (mass/volume) 7.0 g/dL 6.4-8.2 Serum or plasma albumin measurement (mass/volume) 3.9 g/dL 3.2-4.5 Lipase - 08/22/17 17:35 Lipase 19 U/L 8-78 Encounters ACCT No. Visit Date/Time Discharge Status Pt. Type Provider Facility Loc./Unit Complaint [id number] 09/08/2014 11:30:00 09/08/2014 23:59:59 CLS Outpatient LINDSAY MATTHEW DO [id number] 06/26/2014 08:50:00 06/26/2014 23:59:59 CLS Outpatient HANNAH LEE APRN [id number] 04/11/2014 15:37:00 04/11/2014 23:59:59 CLS Outpatient JESUS JOMARHANNAH [id number] 12/01/2012 18:23:00 12/01/2012 23:59:59 CLS Outpatient JESUS JOMARHANNAH Jose [id number] 10/13/2011 16:18:00 10/13/2011 23:59:59 CLS Outpatient JENNA VENTURA, MYNOR [id number] 02/03/2018 15:23:00 02/03/2018 16:17:00 DIS Outpatient RAF COLES APRN [facility] ER NEEDS TICK REMOVED [id number] 10/15/2017 11:00:00 10/15/2017 11:20:00 DIS Outpatient DAMARIS MADERA MD [facility] SLEEP LEFTY G47.33 [id number] 08/22/2017 16:36:00 08/22/2017 19:39:00 DIS Emergency SHARONDA BAR [facility] ER ABD CRAMPING/NAUSEA [id number] 04/19/2017 13:35:00 04/19/2017 15:38:00 DIS Emergency RAF COLES APRN [facility] ER LOWER BACK PAIN [id number] 03/19/2017 20:02:00 03/19/2017 21:03:00 DIS Emergency RAF COLES APRN [facility] ER BACK PAIN [id number] 01/25/2017 18:33:00 01/26/2017 13:49:00 DIS Inpatient DAMARIS MADERA MD [facility] 4TH CHEST PAIN [id number] 09/25/2016 14:31:00 09/25/2016 15:45:00 DIS Emergency RAF COLES APRN [facility] ER BACK INJ, FALL [id number] 05/02/2016 15:28:00 05/02/2016 16:08:00 DIS Emergency NORRIS ZHU MD [facility] ER R ANKLE PAIN/SWELLING [id number] 04/10/2016 21:28:00 04/10/2016 22:43:00 DIS Emergency RAF COLES APRN [facility] ER CHEST PAIN,SOA [id number] 09/07/2015 01:39:00 09/07/2015 01:44:00 DIS Emergency RACHEL ARMSTRONG DOA Daiana [facility] ER [id number] 07/04/2015 09:15:00 07/04/2015 11:40:00 DIS Emergency KIRK WINKLER MD [facility] ER JOINT PAIN/CHILLS/BLURRY VISION [id number] 01/07/2015 18:18:00 01/07/2015 20:30:00 DIS Emergency COLESARF APRN [facility] ER JOINT PAIN;FATIGUE [id number] 08/20/2014 13:20:00 08/21/2014 17:30:00 DIS Inpatient TIFF LINDSAY [facility] CSD CHEST PAIN [id number] 06/28/2014 10:00:00 06/28/2014 12:25:00 DIS Emergency KIRK WINKLER MD [facility] ER RIGHT KNEE PAIN [id number] 06/21/2014 17:00:00 06/21/2014 19:08:00 DIS Emergency SHARONDA BAR [facility] ER R KNEE PAIN [id number] 08/31/2013 21:00:00 08/31/2013 23:46:00 DIS Emergency RACHEL ARMSTRONG DOA Daiana [facility] ER ABD PAIN [id number] 03/26/2015 13:54:00 Document Registration [id number] 03/26/2015 13:54:00 Document Registration [id number] 03/26/2015 13:54:00 Document Registration [id number] 03/26/2015 13:54:00 Document Registration [id number] 03/26/2015 13:54:00 Document Registration [id number] 03/26/2015 13:54:00 Document Registration [id number] 03/26/2015 13:54:00 Document Registration [id number] 03/26/2015 13:54:00 Document Registration [id number] 03/26/2015 13:54:00 Document Registration [id number] 03/26/2015 13:54:00 Document Registration [id number] 03/26/2015 13:54:00 Document Registration [id number] 03/26/2015 13:54:00 Document Registration [id number] 03/26/2015 13:54:00 Document Registration [id number] 03/26/2015 13:54:00 Document Registration [id number] 03/26/2015 13:54:00 Document Registration [id number] 03/26/2015 13:54:00 Document Registration [id number] 03/26/2015 13:54:00 Document Registration [id number] 08/20/2014 12:33:00 Document Registration [id number] 08/20/2014 12:33:00 Document Registration [id number] 10/28/2011 15:48:00 Document Registration [id number] 05/29/2011 10:30:00 Document Registration [id number] 03/20/2011 22:45:00 Document Registration [id number] 02/26/2011 19:15:00 Document Registration [id number] 12/12/2010 11:58:00 Document Registration [id number] 11/26/2010 12:49:00 Document Registration [id number] 10/09/2010 00:12:00 Document Registration [id number] 06/30/2010 16:15:00 Document Registration [id number] 04/12/2010 14:17:00 Document Registration [id number] 03/02/2010 14:20:00 Document Registration [id number] 02/25/2010 13:16:00 Document Registration [id number] 02/13/2010 10:16:00 Document Registration [id number] 09/22/2007 12:13:00 Document Registration [id number] 07/25/2007 13:48:00 Document Registration [id number] 08/03/2006 06:39:00 Document Registration [id number] 07/01/2006 12:23:00 Document Registration
== END 2018-05-18 00:50 | disposition home or self-care (01) ==
LOC: EDUNIT# 18:24 → ER 18:26
DX: R07.89 Other chest pain (principal); R20.2 Paresthesia of skin; R20.0 Anesthesia of skin; I25.10 Atherosclerotic heart disease of native coronary artery without angina pectoris; E78.00 Pure hypercholesterolemia, unspecified; I10 Essential (primary) hypertension; E11.9 Type 2 diabetes mellitus without complications; Z82.49 Family history of ischemic heart disease and other diseases of the circulatory system; Z88.6 Allergy status to analgesic agent; Z88.5 Allergy status to narcotic agent; Z91.041 Radiographic dye allergy status; Z79.84 Long term (current) use of oral hypoglycemic drugs; Z77.22 Contact with and (suspected) exposure to environmental tobacco smoke (acute) (chronic); Z90.89 Acquired absence of other organs; Z98.61 Coronary angioplasty status
CPT/HCPCS: 36415; 70496; 70498; 71045; 80053; 80306; 80320; 81000; 82962; 84484; 85025; 85379; 85610; 85730; 93005; 93041; 96374

== ENCOUNTER → 2018-06-17 | Outpatient (CLI) | payer OTHER | LOC: CARD 12:47 | PROVIDERS: ATTEND Internal Medicine Cardiovascular Disease | DX: R07.9 Chest pain, unspecified (principal); I25.41 Coronary artery aneurysm; E78.2 Mixed hyperlipidemia; Z72.0 Tobacco use | CPT/HCPCS: 93306 ==

== ENCOUNTER → 2018-09-09 | Outpatient (CLI) | payer OTHER ==
--- NOTE | 2018-09-09 11:28 | Diagnostic Imaging Report ---
PROCEDURE: MRI lumbar spine. TECHNIQUE: Multiplanar, multisequence MRI of the lumbar spine was performed without contrast. INDICATION: Chronic lower back pain with bilateral leg pain. COMPARISON: 04/19/2017. FINDINGS: For the purposes of this exam, last well-formed disc space is denoted the L5-S1 level. Static alignment is maintained. There is no significant azul- or retrolisthesis. There is no evidence of jumped facets. Vertebral body heights are maintained. There is no evidence of acute fracture. Evaluation of marrow signal again demonstrates scattered areas of T2 bright and T1 dark nodular signal intensity within the L1, L3, and L5 vertebral bodies. These foci all appear stable when compared to 04/19/2017. Marrow signal is otherwise unremarkable. Intervertebral disc heights are fairly well-maintained. There are mild multilevel anterior and posterior disc bulges. Visualized portions of distal cord are unremarkable. Conus terminates at approximately the L1-L2 level. No abnormal intrathecal filling defects are seen. Pre-and paravertebral soft tissue structures are unremarkable. Axial images demonstrate the following: T12-L1: There is no large disc bulge or focal protrusion. There is no significant spinal canal or neuroforaminal stenosis. L1-L2: There is mild broad-based posterior disc bulge which results in minimal flattening of the anterior thecal sac. Spinal canal and neural foramen are otherwise unremarkable. L2-L3: There is broad-based posterior disc bulge, which results in minimal flattening of the anterior thecal sac and minimal narrowing of the bilateral neural foramen. L3-L4: There is slight central posterior disc protrusion superimposed on broad-based posterior disc bulge. As result, there is mild narrowing of the spinal canal and bilateral neural foramen. L4-L5: There is left paracentric posterior disc protrusion superimposed on broad-based posterior disc bulge. This has progressed since prior exam. There is also bilateral facet arthropathy. As result, there is asymmetric narrowing of the spinal canal and an asymmetric stenosis of the left lateral recess. There is also mild narrowing of the bilateral neural foramen. L5-S1: There is no large disc bulge or focal contusion. There is bilateral facet arthropathy. There is no significant spinal canal or neuroforaminal stenosis. IMPRESSION: 1. Multilevel degenerative changes, greatest at the L4-L5 level. Again, there has been interval progression since previous exam. 2. No acute fracture or dislocation. 3. Multiple atypical T1 dark, T2 bright nodular foci within the L1, L3, and L5 vertebral bodies. Stability since 04/19/2017 suggest benignity such as atypical hemangiomas. Dictated by: Dictated on workstation # [id number]
== END ==
LOC: RAD 09:57
PROVIDERS: ATTEND Family Medicine
DX: M47.816 Spondylosis without myelopathy or radiculopathy, lumbar region (principal); M89.9 Disorder of bone, unspecified
CPT/HCPCS: 72148

== ENCOUNTER 2018-09-21 15:05 | Emergency (ER) | payer OTHER ==
[~2018-09-21] VITALS: Ht 180.3 cm; Wt 122.0 kg
--- OUTSIDE RECORDS SUMMARY | 2018-09-21 15:14 | XMS REPORT | Continuity of Care Document ---
Author Author [facility] Address Unknown Phone Unavailable Allergies Active Description Code Type Severity Reaction Onset Reported/Identified Relationship to Patient Clinical Status Yes traMADOL Drug Allergy 03/05/2011 Yes traMADOL Drug Allergy N/A N/A 03/05/2011 Yes codeine [id number] Drug Allergy Unknown N/A 05/17/2018 Yes iodine [id number] Drug Allergy Unknown N/A 05/17/2018 Yes tramadol [id number] Drug Allergy Unknown RASH 05/17/2018 Medications There is no data. Problems Date [...] WEST MD 550.90 HERNIA INGUINAL 06/26/2008 JESUS SENIOR ARCHITECT, HANNAH S 250.60 Neuropathy With Neurological Manifestations Type Ii Or Unspecified Type Not Stated As Uncontrolled 06/26/2008 JESUS SENIOR ARCHITECT, HANNAH S 550.90 Hernia Inguinal 06/26/2008 JESUS SENIOR ARCHITECT, HANNAH S 250.60 Neuropathy With Neurological Manifestations Type Ii Or Unspecified Type Not Stated As Uncontrolled 06/26/2008 JESUS SENIOR ARCHITECT, HANNAH S 550.90 Hernia Inguinal 06/26/2008 JESUS SENIOR ARCHITECT, HANNAH S 250.60 Neuropathy With Neurological Manifestations Type Ii Or Unspecified Type Not Stated As Uncontrolled 06/26/2008 JESUS SENIOR ARCHITECT, HANNAH S 550.90 Hernia Inguinal 06/26/2008 LINDSAY MATTHEW DO K 250.60 Neuropathy With Neurological Manifestations Type Ii Or Unspecified Type Not Stated As Uncontrolled 06/26/2008 MANFRED MATTHEW DOA K 550.90 Hernia Inguinal 09/24/2008 MYNOR WEST MD 682.9 CELLULITIS AND ABSCESS OF UNSPECIFIED SITES 09/24/2008 MYNOR WEST MD 786.50 CHEST PAIN 09/24/2008 JESUS SENIOR ARCHITECT, HANNAH S 682.9 Cellulitis And Abscess Of Unspecified Sites 09/24/2008 JESUS SENIOR ARCHITECT, HANNAH S 786.50 Chest Pain 09/24/2008 JESUS HADLEY HANNAH S 682.9 Cellulitis And Abscess Of Unspecified Sites 09/24/2008 JESUS SENIOR ARCHITECT, HANNAH S 786.50 Chest Pain 09/24/2008 JESUS SENIOR ARCHITECT, HANNAH S 682.9 Cellulitis And Abscess Of [...] S 110.1 Dermatophytosis Of Nail 10/31/2008 JESUS SENIOR ARCHITECT, HANNAH S 356.9 Unspecified Idiopathic Peripheral Neuropathy 10/31/2008 JESUS SENIOR ARCHITECT, HANNAH S 110.1 Dermatophytosis Of Nail 10/31/2008 JESUS SENIOR ARCHITECT, HANNAH S 356.9 Unspecified Idiopathic Peripheral Neuropathy 10/31/2008 JESUS SENIOR ARCHITECT, HANNAH S 110.1 Dermatophytosis Of Nail 10/31/2008 JESUSZACHARY HADLEY, HANNAH S 356.9 Unspecified Idiopathic Peripheral Neuropathy 10/31/2008 MATTHEW DO LINDSAY K 110.1 Dermatophytosis Of Nail 10/31/2008 MATTHEW DO LINDSAY K 356.9 Unspecified Idiopathic Peripheral Neuropathy 11/12/2008 MYNOR WEST MD 296.90 UNSPECIFIED EPISODIC MOOD DISORDER 11/12/2008 MYNOR WEST MD 729.5 PAIN IN LIMB 11/12/2008 JESUS SENIOR ARCHITECT, HANNAH S 296.90 Unspecified Episodic Mood Disorder 11/12/2008 JESUS SENIOR ARCHITECT, HANNAH S 729.5 Pain In Limb 11/12/2008 JESUS SENIOR ARCHITECT, HANNAH S 296.90 Unspecified Episodic Mood Disorder 11/12/2008 JESUS SENIOR ARCHITECT, HANNAH S 729.5 Pain In Limb 11/12/2008 JESUS SENIOR ARCHITECT, HANNAH S 296.90 Unspecified Episodic Mood Disorder 11/12/2008 JESUS SENIOR ARCHITECT, HANNAH S 729.5 Pain In Limb 11/12/2008 [...] OTHER SPECIFIED ALCOHOL-INDUCED MENTAL DISORDERS 12/12/2008 JESUS SENIOR ARCHITECT, HANNAH S 291.89 OTHER SPECIFIED ALCOHOL-INDUCED MENTAL [...] MYNOR WEST MD 272.4 HYPERLIPIDEMIA 01/23/2010 MYNOR WEST MD 401.9 HYPERTENSION, UNSPECIFIED ESSENTIAL 01/23/2010 SALVADOR LEE APRNNDA S 272.4 HYPERLIPIDEMIA 01/23/2010 JESUS HADLEY HANNAH S 401.9 HYPERTENSION, UNSPECIFIED ESSENTIAL 01/23/2010 JESUS HADLEY HANNAH S 272.4 HYPERLIPIDEMIA 01/23/2010 JESUS HADLEY HANNAH S 401.9 HYPERTENSION, UNSPECIFIED ESSENTIAL 01/23/2010 JESUS SENIOR ARCHITECT, HANNAH S 272.4 HYPERLIPIDEMIA 01/23/2010 JESUS SENIOR ARCHITECT, HANNAH S 401.9 HYPERTENSION, UNSPECIFIED ESSENTIAL 01/23/2010 MATTHEW DO, LINDSAY K 272.4 HYPERLIPIDEMIA 01/23/2010 MATTHEW DO, LINDSAY K 401.9 HYPERTENSION, UNSPECIFIED ESSENTIAL 01/29/2010 JENNA VENTURA, MYNOR 535.00 ACUTE GASTRITIS, WITHOUT MENTION OF HEMORRHAGE 01/29/2010 JESUS SENIOR ARCHITECT, HANNAH S 535.00 Acute Gastritis, Without Mention Of Hemorrhage 01/29/2010 JESUS SENIOR ARCHITECT, HANNAH S 535.00 Acute Gastritis, Without Mention Of Hemorrhage 01/29/2010 JESUS SENIOR ARCHITECT, HANNAH S 535.00 Acute Gastritis, Without Mention Of Hemorrhage 01/29/2010 MANFRED MATTHEW DOA K 535.00 Acute Gastritis, Without Mention Of Hemorrhage 02/12/2010 JENNA VENTURA, MYNOR 789.00 ABDOMINAL PAIN UNSPECIFIED SITE 02/12/2010 JESUS SENIOR ARCHITECT, HANNAH S 789.00 Abdominal Pain Unspecified Site 02/12/2010 JESUS SENIOR ARCHITECT, HANNAH S 789.00 Abdominal Pain Unspecified Site 02/12/2010 JESUS SENIOR ARCHITECT, HANNAH S 789.00 Abdominal Pain Unspecified Site 02/12/2010 MANFRED MATTHEW DOA K 789.00 Abdominal Pain Unspecified Site 02/14/2010 JENNA VENTURA, MYNOR 562.11 DIVERTICULITIS OF COLON (WITHOUT HEMORRHAGE) 02/14/2010 JESUS SENIOR ARCHITECT, HANNAH S 562.11 Diverticulitis Of Colon (without Hemorrhage) 02/14/2010 JESUS SENIOR ARCHITECT, HANNAH S 562.11 Diverticulitis Of Colon (without Hemorrhage) 02/14/2010 JESUS SENIOR ARCHITECT, HANNAH S 562.11 Diverticulitis Of Colon (without [...] 12/06/2010 MYNOR WEST MD 784.0 HEADACHE 12/06/2010 SALVADOR LEE APRNNDA S [...] MYNOR WEST MD 414.01 CORONARY ATHEROSCLEROSIS OF [place] CORONARY ARTERY 03/05/2011 HANNAH LEE APRN S 414.01 CORONARY ATHEROSCLEROSIS OF [place] CORONARY ARTERY 03/05/2011 HANNAH LEE APRN S 414.01 CORONARY ATHEROSCLEROSIS OF [place] CORONARY ARTERY 03/05/2011 HANNAH LEE APRN S 414.01 CORONARY ATHEROSCLEROSIS OF [place] CORONARY ARTERY 03/05/2011 LINDSAY MATTHEW DO 414.01 CORONARY ATHEROSCLEROSIS OF [place] CORONARY ARTERY 03/21/2011 Ot 272.4 HYPERLIPIDEMIA NEC/NOS 03/21/2011 Ot 401.9 HYPERTENSION NOS 03/21/2011 Ot 414.01 CORONARY ATHEROSCLEROSIS OF [place] CORON 03/21/2011 Ot 571.8 CHRONIC LIVER DIS [...] MATTHEW DO Ot 414.01 CORONARY ATHEROSCLEROSIS OF [place] CORON 08/21/2014 LINDSAY MATTHEW DO Ot 786.50 CHEST PAIN NOS 08/21/2014 LINDSAY MATTHEW DO Ot V15.81 HX OF PAST [...] R07.9 CHEST PAIN, UNSPECIFIED 04/13/2016 RAF COLES SENIOR ARCHITECT Ot F17.210 NICOTINE DEPENDENCE, CIGARETTES, UNCOMPL 04/13/2016 [...] STATUS 09/25/2016 RAF COLES APRN Ot Z79.84 CABIN CLEANER (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 OF ORAL HYPOGLYC 09/25/2016 RAF COLES APRN Ot Z79.899 OTHER GROUP HOME (CURRENT) DRUG THERAPY 10/02/2016 RAF COLES APRN [...] STATUS 10/02/2016 RAF COLES APRN Ot Z79.84 GROUP HOME (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 OF ORAL HYPOGLYC 10/02/2016 RAF COLES APRN Ot Z79.899 OTHER GROUP HOME (CURRENT) DRUG THERAPY 01/26/2017 DAMARIS MADERA MD, Ot E11.9 TYPE 2 DIABETES MELLITUS WITHOUT COMPLIC 01/26/2017 DAMARIS MADERA MD Ot E66.9 OBESITY, UNSPECIFIED 01/26/2017 DAMARIS MADERA MD Ot E78.5 HYPERLIPIDEMIA, UNSPECIFIED 01/26/2017 DAMARIS MADERA MD, Ot F17.210 NICOTINE DEPENDENCE, CIGARETTES, UNCOMPL 01/26/2017 DAMARIS MADERA MD, Ot I10 ESSENTIAL (PRIMARY) HYPERTENSION 01/26/2017 DAMARIS MADERA MD Ot I25.10 ATHSCL HEART DISEASE OF [place] CORONARY 01/26/2017 DAMARIS MADERA MD Ot R07.9 CHEST PAIN, UNSPECIFIED 01/26/2017 DAMARIS MADERA MD Ot Z68.39 BODY MASS INDEX (BMI) 39.0-39.9, ADULT 01/26/2017 DAMARIS MADERA MD, Ot Z79.84 GROUP HOME (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 OF ORAL HYPOGLYC 03/19/2017 RAF COLES APRN Ot E11.9 TYPE 2 DIABETES MELLITUS WITHOUT COMPLIC 03/19/2017 RAF COLES APRN Ot F17.210 NICOTINE DEPENDENCE, CIGARETTES, UNCOMPL 03/19/2017 RAF COLES APRN Ot I10 ESSENTIAL (PRIMARY) HYPERTENSION 03/19/2017 RAF COLES APRN Ot M54.5 LOW BACK PAIN 03/19/2017 RAF COLES APRN Ot Z79.82 CABIN CLEANER (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 OF ASPIRIN 03/19/2017 RAF COLES APRN Ot Z79.84 GROUP HOME (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 OF ORAL HYPOGLYC 03/19/2017 RAF COLES APRN Ot Z82.49 FAMILY HX OF ISCHEM HEART DIS AND OTH DI 03/19/2017 RAF COLES APRN Ot Z90.49 ACQUIRED ABSENCE OF OTHER SPECIFIED PART 03/19/2017 RAF COLES APRN Ot Z98.61 CORONARY ANGIOPLASTY STATUS 04/19/2017 RAF COLES APRN Ot E11.9 TYPE 2 DIABETES MELLITUS WITHOUT COMPLIC 04/19/2017 RFA COLES APRN Ot I10 ESSENTIAL (PRIMARY) HYPERTENSION 04/19/2017 RAF COLES APRN Ot M48.06 SPINAL STENOSIS, LUMBAR REGION 04/19/2017 RAF COLES APRN Ot M51.16 INTERVERTEBRAL DISC DISORDERS W RADICULO 04/19/2017 RAF COLES APRN Ot M54.5 LOW BACK PAIN 04/19/2017 RAF COLES APRN Ot Z79.82 GROUP HOME (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 OF ASPIRIN 04/19/2017 RAF COLES APRN Ot Z79.84 GROUP HOME (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 OF ORAL HYPOGLYC 04/19/2017 RAF [...] PAIN 04/21/2017 RAF COLES APRN Ot Z79.82 CABIN CLEANER (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 OF ASPIRIN 04/21/2017 RAF COLES APRN Ot Z79.84 GROUP HOME (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 OF ORAL HYPOGLYC 04/21/2017 RAF [...] BAR Ot I25.10 ATHSCL HEART DISEASE OF [place] CORONARY 08/22/2017 SHARONDA BAR Ot K52.9 NONINFECTIVE GASTROENTERITIS AND COLITIS 08/22/2017 SHARONDA BAR Ot R10.30 LOWER ABDOMINAL PAIN, UNSPECIFIED 08/22/2017 SHARONDA BAR Ot Z79.84 CABIN CLEANER (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 OF ORAL HYPOGLYC 08/22/2017 SHARONDA [...] 10/23/2017 DAMARIS MADERA MD Ot R06.83 SNORING 02/03/2018 RAF OCLES APRN Ot E11.9 TYPE 2 DIABETES MELLITUS WITHOUT COMPLIC 02/03/2018 RAF COLES APRN Ot E78.00 PURE HYPERCHOLESTEROLEMIA, UNSPECIFIED 02/03/2018 RAF COLES APRN Ot I10 ESSENTIAL (PRIMARY) HYPERTENSION 02/03/2018 RAF COLES APRN Ot I25.10 ATHSCL HEART DISEASE OF [place] CORONARY 02/03/2018 RAF COLES APRN Ot S30.862A INSECT BITE (NONVENOMOUS) OF PENIS, INIT 02/03/2018 RAF COLES APRN Ot W57.XXXA BIT/STUNG BY NONVENOM INSECT OTH NONVE 02/03/2018 RAF COLES APRN Ot Z77.22 CNTCT W AND EXPSR TO ENVIRON TOBACCO SMO 02/03/2018 RAF COLES APRN Ot Z79.84 CABIN CLEANER (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 OF ORAL HYPOGLYC 02/03/2018 RAF COLES APRN Ot Z82.49 FAMILY HX OF ISCHEM HEART DIS AND OTH DI 02/03/2018 RAF COLES APRN Ot Z88.5 ALLERGY STATUS TO NARCOTIC AGENT STATUS 02/03/2018 RAF COLES APRN Ot Z88.6 ALLERGY STATUS TO ANALGESIC AGENT STATUS 02/03/2018 RAF COLES APRN Ot Z90.49 ACQUIRED ABSENCE OF OTHER SPECIFIED PART 02/03/2018 RAF COLES APRN Ot Z91.041 RADIOGRAPHIC DYE ALLERGY STATUS 02/03/2018 RAF COLES APRN Ot Z98.61 CORONARY ANGIOPLASTY STATUS 02/07/2018 RAF COLES APRN Ot E11.9 TYPE 2 DIABETES MELLITUS WITHOUT COMPLIC 02/07/2018 RAF COLES APRN Ot E78.00 PURE HYPERCHOLESTEROLEMIA, UNSPECIFIED 02/07/2018 RAF COLES APRN Ot I10 ESSENTIAL (PRIMARY) HYPERTENSION 02/07/2018 RAF COLES APRN Ot I25.10 ATHSCL HEART DISEASE OF [place] CORONARY 02/07/2018 RAF COLES APRN Ot S30.862A INSECT BITE (NONVENOMOUS) OF PENIS, INIT 02/07/2018 RAF COLES APRN Ot W57.XXXA BIT/STUNG BY NONVENOM INSECT OTH NONVE 02/07/2018 RAF COLES APRN Ot Z77.22 CNTCT W AND EXPSR TO ENVIRON TOBACCO SMO 02/07/2018 RAF COLES APRN Ot Z79.84 CABIN CLEANER (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 OF ORAL HYPOGLYC 02/07/2018 RAF [...] COLES APRN Ot Z98.61 CORONARY ANGIOPLASTY STATUS 05/18/2018 JENNA VENTURA, MYNOR Leon Ot E11.9 TYPE 2 DIABETES MELLITUS WITHOUT COMPLIC 05/18/2018 MYNOR WEST MD Ot E78.00 PURE HYPERCHOLESTEROLEMIA, UNSPECIFIED 05/18/2018 MYNOR WEST MD Ot I10 ESSENTIAL (PRIMARY) HYPERTENSION 05/18/2018 MYNOR WEST MD Ot I25.10 ATHSCL HEART DISEASE OF [place] CORONARY 05/18/2018 MYNOR WEST MD Ot R07.89 OTHER CHEST PAIN 05/18/2018 MYNOR WEST MD Ot R20.0 ANESTHESIA OF SKIN 05/18/2018 MYNOR WEST MD, Ot R20.2 PARESTHESIA OF SKIN 05/18/2018 MYNOR WEST MD Ot Z77.22 CNTCT W AND EXPSR TO ENVIRON TOBACCO SMO 05/18/2018 MYNOR WEST MD Ot Z79.84 GROUP HOME (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 OF ORAL HYPOGLYC 05/18/2018 MYNOR WEST MD Ot Z82.49 FAMILY HX OF ISCHEM HEART DIS AND OTH DI 05/18/2018 MYNOR WEST MD, Ot Z88.5 ALLERGY STATUS TO NARCOTIC AGENT STATUS 05/18/2018 MYNOR WEST MD Ot Z88.6 ALLERGY STATUS TO ANALGESIC AGENT STATUS 05/18/2018 MYNOR WEST MD Ot Z90.89 ACQUIRED ABSENCE OF OTHER ORGANS 05/18/2018 MYNOR WEST MD Ot Z91.041 RADIOGRAPHIC DYE ALLERGY STATUS 05/18/2018 MYNOR WEST MD Ot Z98.61 CORONARY ANGIOPLASTY STATUS 05/19/2018 MYNOR WEST MD Ot E11.9 TYPE 2 DIABETES MELLITUS WITHOUT COMPLIC 05/19/2018 MYNOR WEST MD Ot E78.00 PURE HYPERCHOLESTEROLEMIA, UNSPECIFIED 05/19/2018 MYNOR WEST MD Ot I10 ESSENTIAL (PRIMARY) HYPERTENSION 05/19/2018 MYNOR WEST MD, Ot I25.10 ATHSCL HEART DISEASE OF [place] CORONARY 05/19/2018 MYNOR WEST MD Ot R07.89 OTHER CHEST PAIN 05/19/2018 MYNOR WEST MD Ot R20.0 ANESTHESIA OF SKIN 05/19/2018 MYNOR WEST MD Ot R20.2 PARESTHESIA OF SKIN 05/19/2018 MYNOR WEST MD Ot Z77.22 CNTCT W AND EXPSR TO ENVIRON TOBACCO SMO 05/19/2018 MYNOR WEST MD Ot Z79.84 CABIN CLEANER (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 OF ORAL HYPOGLYC 05/19/2018 MYNOR WEST MD Ot Z82.49 FAMILY HX OF ISCHE[place] HEART DIS AND OTH DI 05/19/2018 MYNOR WEST MD, Ot Z88.5 ALLERGY STATUS TO NARCOTIC AGENT STATUS 05/19/2018 MYNOR WEST MD Ot Z88.6 ALLERGY STATUS TO ANALGESIC AGENT STATUS 05/19/2018 MYNOR WEST MD Ot Z90.89 ACQUIRED ABSENCE OF OTHER ORGANS 05/19/2018 MYNOR WEST MD Ot Z91.041 RADIOGRAPHIC DYE ALLERGY STATUS 05/19/2018 MYNOR WEST MD Ot Z98.61 CORONARY ANGIOPLASTY STATUS 06/21/2018 VALENTINA VALLADARES MD Ot E78.2 MIXED HYPERLIPIDEMIA 06/21/2018 VALENTINA VALLADARES MD Ot I25.41 CORONARY ARTERY ANEURYSM 06/21/2018 VALENTINA VALLADARES MD Ot R07.9 CHEST PAIN, UNSPECIFIED 06/21/2018 VALENTINA VALLADARSE MD Ot Z72.0 TOBACCO USE 07/12/2018 VALENTINA VALLADARSE MD Ot E78.2 MIXED HYPERLIPIDEMIA 07/12/2018 VALENTINA VALLADARES MD Ot I25.41 CORONARY ARTERY ANEURYSM 07/12/2018 VALENTINA VALLADARES MD Ot R07.9 CHEST PAIN, UNSPECIFIED 07/12/2018 VALENTINA VALLADARES MD Ot Z72.0 TOBACCO USE 09/08/2018 VALENTINA VALLADARES MD Ot E78.2 MIXED HYPERLIPIDEMIA 09/08/2018 VALENTINA VALLADARES MD Ot I25.41 CORONARY ARTERY ANEURYSM 09/08/2018 VALENTINA VALLADARES MD Ot R07.9 CHEST PAIN, UNSPECIFIED 09/08/2018 VALENTINA VALLADARES MD Ot Z72.0 TOBACCO USE 09/12/2018 DAMARIS MADERA MD Ot M47.816 SPONDYLOSIS W/O MYELOPATHY OR RADICULOPA 09/12/2018 DAMARIS MADERA MD Ot M89.9 DISORDER OF BONE, UNSPECIFIED Procedures Code Description [place] [address] MICRO ALBUMIN-IN HOUSE 12/01/2012 36813 A1C (IN-HOUSE) 12/01/2012 47651 XRAY KNEE RIGHT 1 OR 2 VIEWS [...] - 08/22/17 17:35 Lipase 19 U/L 8-78 Complete blood count (CBC) with automated white blood cell (WBC) differential - 05/17/18 18:36 Blood leukocytes automated count (number/volume) 9.2 10*3/uL 4.3-11.0 Blood erythrocytes automated count (number/volume) 4.88 10*6/uL 4.35-5.85 Venous blood hemoglobin measurement (mass/volume) 15.6 g/dL 13.3-17.7 Blood hematocrit (volume fraction) 45 % 40-54 Automated erythrocyte mean corpuscular volume 93 [foz_us] 80-99 Automated erythrocyte mean corpuscular hemoglobin (mass per erythrocyte) 32 pg 25-34 Automated erythrocyte mean corpuscular hemoglobin concentration measurement ( mass/volume) 34 g/dL 32-36 Automated erythrocyte distribution width ratio 13.2 % 10.0-14.5 Automated blood platelet count (count/volume) 232 10*3/uL 130-400 Automated blood platelet mean volume measurement 10.8 [foz_us] 7.4-10.4 Automated blood neutrophils/100 leukocytes 60 % 42-75 Automated blood lymphocytes/100 leukocytes 30 % 12-44 Blood monocytes/100 leukocytes 8 % 0-12 Automated blood eosinophils/100 leukocytes 1 % 0-10 Automated blood basophils/100 leukocytes 0 % 0-10 Blood neutrophils automated count (number/volume) 5.5 10*3 1.8-7.8 Blood lymphocytes automated count (number/volume) 2.8 10*3 1.0-4.0 Blood monocytes automated count (number/volume) 0.8 10*3 0.0-1.0 Automated eosinophil count 0.1 10*3/uL 0.0-0.3 Automated blood basophil count (count/volume) 0.0 10*3/uL 0.0-0.1 Comprehensive metabolic panel - 05/17/18 18:36 Serum or plasma sodium measurement (moles/volume) 134 mmol/L 135-145 Serum or plasma potassium measurement (moles/volume) 4.4 mmol/L 3.6-5.0 Serum or plasma chloride measurement (moles/volume) 102 mmol/L 98-107 Carbon dioxide 23 mmol/L 21-32 Serum or plasma anion gap determination (moles/volume) 9 mmol/L 5-14 Serum or plasma urea nitrogen measurement (mass/volume) 14 mg/dL 7-18 Serum or plasma creatinine measurement (mass/volume) 0.94 mg/dL 0.60-1.30 Serum or plasma urea nitrogen/creatinine mass ratio 15 NRG Serum or plasma creatinine measurement with calculation of estimated glomerular filtration rate > NRG Serum or plasma glucose measurement (mass/volume) 90 mg/dL 70-105 Serum or plasma calcium measurement (mass/volume) 9.7 mg/dL 8.5-10.1 Serum or plasma total bilirubin measurement (mass/volume) 0.3 mg/dL 0.1-1.0 Serum or plasma alkaline phosphatase measurement (enzymatic activity/volume) 29 U/L 40-136 Serum or plasma aspartate aminotransferase measurement (enzymatic activity/ volume) 19 U/L 5-34 Serum or plasma alanine aminotransferase measurement (enzymatic activity/volume ) 35 U/L 0-55 Serum or plasma protein measurement (mass/volume) 7.5 g/dL 6.4-8.2 Serum or plasma albumin measurement (mass/volume) 4.4 g/dL 3.2-4.5 CALCIUM CORRECTED 9.4 mg/dL 8.5-10.1 Serum or plasma troponin i.cardiac measurement (mass/volume) - 05/17/18 18:36 Serum or plasma troponin i.cardiac measurement (mass/volume) < ng/ mL <0.30 PT panel in platelet poor plasma by coagulation assay - 05/17/18 18:36 Prothrombin time (PT) in platelet poor plasma by coagulation assay 12.4 s 12.2-14.7 INR in platelet poor plasma or blood by coagulation assay 0.9 0.8-1.4 Activated partial thromboplastin time (aPTT) in platelet poor plasma bycoagulation assay - 05/17/18 18:36 Activated partial thromboplastin time (aPTT) in platelet poor plasma bycoagulation assay 30 s 24-35 Fibrin D-dimer FEU measurement in platelet poor plasma (mass/volume) - 18:36 Fibrin D-dimer FEU measurement in platelet poor plasma (mass/volume) 0.37 ug/mL 0.00-0.49 Capillary blood glucose measurement by glucometer (mass/volume) - 05/17/18 18: 49 Capillary blood glucose measurement by glucometer (mass/volume) 91 mg/dL 70-110 Complete urinalysis with reflex to culture - 05/17/18 19:30 Urine color determination YELLOW NRG Urine clarity determination CLEAR NRG Urine pH measurement by test strip 7 5-9 Specific gravity of urine by test strip 1.010 1.016- 1.022 Urine protein assay by test [...] urine sediment by light microscopy NONE NRG Squamous epithelial cells detection in urine sediment by light microscopy RARE NRG Crystals detection in urine sediment by light microscopy NONE NRG Casts detection in urine sediment by light microscopy NONE NRG Mucus detection in urine sediment by light microscopy NEGATIVE NRG Complete urinalysis with reflex to culture NO NRG Serum or plasma ethanol measurement (mass/volume) - 05/17/18 19:30 Serum or plasma ethanol measurement (mass/volume) < mg/dL <10 Urine drug screening test - 05/17/18 19:30 Urine phencyclidine detection by screening method NEGATIVE NEGATIVE Urine benzodiazepines detection by screening method NEGATIVE NEGATIVE Urine cocaine detection NEGATIVE NEGATIVE Urine amphetamines detection by screening method NEGATIVE NEGATIVE Urine methamphetamine detection by screening method NEGATIVE NEGATIVE Urine cannabinoids detection by screening method NEGATIVE NEGATIVE Urine opiates detection by screening method NEGATIVE NEGATIVE Urine barbiturates detection NEGATIVE NEGATIVE Screening urine tricyclic antidepressants detection NEGATIVE NEGATIVE Urine methadone detection by screening method NEGATIVE NEGATIVE Urine oxycodone detection NEGATIVE NEGATIVE Urine propoxyphene detection NEGATIVE NEGATIVE Serum or plasma troponin i.cardiac measurement (mass/volume) - 05/17/18 23:26 Serum or plasma troponin i.cardiac measurement (mass/volume) < ng/ mL <0.30 Encounters ACCT No. Visit Date/Time Discharge Status Pt. Type Provider Facility Loc./Unit Complaint [id number] 09/08/2014 11:30:00 09/08/2014 23:59:59 CLS Outpatient LINDSAY MATTHEW DO [place] [id number] 06/26/2014 08:50:00 06/26/2014 23:59:59 CLS Outpatient HANNAH LEE APRN [id number] 04/11/2014 15:37:00 04/11/2014 23:59:59 CLS Outpatient HANNAH LEE APRN [id number] 12/01/2012 18:23:00 12/01/2012 23:59:59 CLS Outpatient HANNAH LEE APRN [id number] 10/13/2011 16:18:00 10/13/2011 23:59:59 CLS Outpatient MYNOR WEST MD [id number] 09/09/2018 09:57:00 09/09/2018 23:59:59 CLS Outpatient DAMARIS MADERA MD [facility] RAD LOW BACK PAIN [id number] 06/17/2018 12:47:00 06/17/2018 23:59:59 CLS Outpatient VALENTINA VALLADARES MD [facility] CARD CHEST PAIN SYNDROME, CORONARY ARTERY ECTASIA [id number] 05/17/2018 18:26:00 05/18/2018 00:50:00 DIS Emergency MYNOR WEST MD [facility] ER CP, FACIAL NUMBNESS, R ARM PAIN [id number] 02/03/2018 15:23:00 02/03/2018 16:17:00 DIS Emergency RAF COLES APRN [facility] ER NEEDS TICK REMOVED [id number] 10/15/2017 11:00:00 10/15/2017 11:20:00 DIS Outpatient SANTY VENTURA, DAMARIS Pryor [facility] SLEEP LEFTY G47.33 [id number] 08/22/2017 16:36:00 08/22/2017 19:39:00 DIS Emergency SHARONDA BAR [facility] ER ABD CRAMPING/NAUSEA [id number] 04/19/2017 13:35:00 04/19/2017 15:38:00 DIS Emergency RAF COLES APRN [facility] ER LOWER BACK PAIN [id number] 03/19/2017 20:02:00 03/19/2017 21:03:00 DIS Emergency RAF COLES APRN [facility] ER BACK PAIN [id number] 01/25/2017 18:33:00 01/26/2017 13:49:00 DIS Inpatient DAMARIS MADERA MD [facility] 4TH CHEST PAIN [id number] 09/25/2016 14:31:00 09/25/2016 15:45:00 DIS Emergency RAF COLES APRN [facility] ER BACK INJ, FALL [id number] 05/02/2016 15:28:00 05/02/2016 16:08:00 DIS Emergency NORRIS ZHU MD [facility] ER R ANKLE PAIN/SWELLING [id number] 04/10/2016 21:28:00 04/10/2016 22:43:00 DIS Emergency RAF COLES APRN [facility] ER CHEST PAIN,SOA [id number] 09/07/2015 01:39:00 09/07/2015 01:44:00 DIS Emergency PATTI DO SHALONDA Ahmadi [facility] ER [id number] 07/04/2015 09:15:00 07/04/2015 11:40:00 DIS Emergency KIRK WINKLER MD [facility] ER JOINT PAIN/CHILLS/BLURRY VISION [id number] 01/07/2015 18:18:00 01/07/2015 20:30:00 DIS Emergency RAF COLES APRN [facility] ER JOINT PAIN;FATIGUE [id number] 08/20/2014 13:20:00 08/21/2014 17:30:00 DIS Inpatient LINDSAY MATTHEW DO [facility] CSD CHEST PAIN [id number] 06/28/2014 10:00:00 06/28/2014 12:25:00 DIS Emergency KIRK WINKLER MD [facility] ER RIGHT KNEE PAIN [id number] 06/21/2014 17:00:00 06/21/2014 19:08:00 DIS Emergency SHARONDA BAR [facility] ER R KNEE PAIN [id number] 08/31/2013 21:00:00 08/31/2013 23:46:00 DIS Emergency PATTI NAVARRETE SHALONDA Ahmadi [facility] ER ABD PAIN [id number] 03/26/2015 13:54:00 Document Registration [id number] 03/26/2015 13:54:00 Document Registration [id number] 03/26/2015 13:54:00 Document Registration [id number] 03/26/2015 13:54:00 Document Registration [id number] 03/26/2015 13:54:00 Document Registration [id number] 03/26/2015 13:54:00 Document Registration [id number] 03/26/2015 13:54:00 Document Registration [id number] 03/26/2015 13:54:00 Document Registration [id number] 03/26/2015 13:54:00 Document Registration [id number] 03/26/2015 13:54:00 Document Registration [id number] 03/26/2015 13:54:00 Document Registration [id number] 03/26/2015 13:54:00 Document Registration [id number] 03/26/2015 13:54:00 Document Registration [id number] 03/26/2015 13:54:00 Document Registration [id number] 03/26/2015 13:54:00 Document Registration [id number] 03/26/2015 13:54:00 Document Registration [id number] 03/26/2015 13:54:00 Document Registration [id number] 08/20/2014 12:33:00 Document Registration [id number] 08/20/2014 12:33:00 Document Registration [id number] 10/28/2011 15:48:00 Document Registration [id number] 05/29/2011 10:30:00 Document Registration [id number] 03/20/2011 22:45:00 Document Registration [id number] 02/26/2011 19:15:00 Document Registration [id number] 12/12/2010 11:58:00 Document Registration [id number] 11/26/2010 12:49:00 Document Registration [id number] 10/09/2010 00:12:00 Document Registration [id number] 06/30/2010 16:15:00 Document Registration [id number] 04/12/2010 14:17:00 Document Registration [id number] 03/02/2010 14:20:00 Document Registration [id number] 02/25/2010 13:16:00 Document Registration [id number] 02/13/2010 10:16:00 Document Registration [id number] 09/22/2007 12:13:00 Document Registration [id number] 07/25/2007 13:48:00 Document Registration [id number] 08/03/2006 06:39:00 Document Registration [id number] 07/01/2006 12:23:00 Document Registration
[2018-09-21] MEDS ORDERED: IBUP-1780 PO (15:28)
[2018-09-21] MEDS ORDERED: HYDR-3062 PO (15:28)
--- NOTE | 2018-09-21 15:38 | ED Back Pain ---
General Chief Complaint: Back Problems Stated Complaint: BACK PAIN Nursing Triage Note: PT PRESENTS TO ER WITH COMPLAINT OF BACK PAIN. STATES HE HAD AN MRI A FEW WEEKS AGO THAT SHOWED PINCHED NERVES. PT IS CURRENTLY TAKING 7.5 HYDROCODONES AND 800MG IBUPROFEN. IS SCHEDULED TO SEE A SURGEON IN A FEW WEEKS. Nursing Sepsis Screen: No Definite Risk History of Present Illness Date Seen by Provider: Sep 21, 2018 Time Seen by Provider: 15:35 Initial Comments 43-year-old male being evaluated for low back pain since May. He had an MRI done on 09/09/18 and is in the process of being referred to Dr. Shyla Frazier for evaluation. Dr. Frazier has reviewed his MRI and he is scheduled to see her on 11/04/18. He has been taking hydrocodone 7.5 mg and ibuprofen 800 mg every 4 hours. He works 12 hour shifts. He has been unable to attend physical therapy due to his work schedule. He has been on prednisone and had steroid injections, IM. He tried muscle relaxants, with no improvement. He has not been evaluated by a pain specialist or had epidural injections. No new injuries, he just reports that his pain has been intolerable. Location: Lumbar Spine Timing/Duration: Getting Worse Pain/Injury Location: Back Associated Symptoms: muscle spasms, lower back pain; No loss of bladder control , No loss of bowel control Allergies and Home Medications Allergies Coded Allergies: iodine (Verified Allergy, Unknown, 05/17/18) CONTRAST MEDIA tramadol (Unverified Allergy, Unknown, RASH, 05/17/18) codeine (Verified Adverse Reaction, Unknown, 05/17/18) Home Medications Atenolol 100 Mg Tablet, 100 MG PO DAILY, (Reported) Hydrocodone/Acetaminophen 1 Each Tablet, 1-2 EACH PO Q6H PRN for PAIN-MODERATE, (Reported) Ibuprofen 800 Mg Tablet, 800 MG PO Q8H PRN for PAIN, (Reported) Metformin HCl 500 Mg Tab.er.24h, 1,000 MG PO BID, (Reported) LAST FILLED #120 12-05-16 TAKES 2 (500MG) TABLETS Patient Home Medication List Home Medication List Reviewed: Yes Review of Systems Constitutional: no symptoms reported, see HPI Musculoskeletal: see HPI, back pain All Other Systems Reviewed Negative Unless Noted: Yes Past Nfiqtyv-Pnvliy-Yotusj Hx Past Med/Social Hx: Reviewed Nursing Past Med/Soc Hx Patient Social History Alcohol Use: Occasionally Uses Number of Drinks Today: FF Alcohol Beverage of Choice: Beer, Vodka Recreational Drug Use: No Smoking Status: Current Everyday Smoker Type Used: Cigarettes 2nd Hand Smoke Exposure: Yes Recent Foreign Travel: No Contact w/Someone Who Travel: No Recent Infectious Disease Expo: No Recent Hopitalizations: No Immunizations Up To Date Tetanus Booster (TDap): More than 5yrs PED Vaccines UTD: Yes Date of Influenza Vaccine: Jun 13, 2010 Seasonal Allergies Seasonal Allergies: No Past Medical History Surgeries: Yes (CARPAL TUNNEL) Angioplasty, Appendectomy Respiratory: No Currently Using CPAP: No Currently Using BIPAP: No Cardiac: Yes (2 HEART CATHS, "SMALL ARTERY DISEASE") Coronary Artery Disease, High Cholesterol, Hypertension Neurological: Yes (2017) Stroke Reproductive Disorders: No Sexually Transmitted Disease: No HIV/AIDS: No Genitourinary: No Gastrointestinal: No Musculoskeletal: Yes Chronic Back Pain Endocrine: Yes Diabetes, Non-Insulin dep HEENT: No Cancer: No Psychosocial: No Integumentary: No Blood Disorders: No Adverse Reaction/Blood Tranf: No Family Medical History Cardiovascular disease 19 FATHER Diabetes mellitus 19 FATHER Hypertension 19 FATHER MS (multiple sclerosis) 19 FATHER No Pertinent Family Hx Physical Exam Vital Signs Vital Signs - First Documented 09/21/18 15:20 Temp 97.2 Pulse 65 Resp 20 B/P (MAP) 127/63 (84) Pulse Ox 96 O2 Delivery Room Air Capillary Refill : Less Than 3 Seconds Height, Weight, BMI Height: 5'11.00" Weight: 269lbs. 3.0oz. 122.795918go; 39.4 BMI Method:Stated General Appearance: No Apparent Distress, WD/WN Cardiovascular: Regular Rate, Rhythm, No Edema, Normal Peripheral Pulses Respiratory: Chest Non Tender, Lungs Clear, Normal Breath Sounds Neurologic/Psychiatric: Alert, Oriented x3, No Motor/Sensory Deficits, Other ( power 5 over 5 L4 to S1. + SLR. Ambulates with an antalgic gait, able to rise on to toes and heels to ambulate. Limitation of motion lumbar spine secondary to pain.) Skin: Normal Color, Warm/Dry Progress/Results/Core Measures Results/Orders Vital Signs/I&O 09/21/18 09/21/18 15:20 16:27 Temp 97.2 97.2 Pulse 65 65 Resp 20 20 B/P (MAP) 127/63 (84) 127/63 (84) Pulse Ox 96 96 O2 Delivery Room Air Blood Pressure Mean: 84 Progress Progress Note : Time: 15:35 Progress Note Patient seen and evaluated. Discussed further options and treatment, including evaluation by pain specialist, physical therapy, ice/heat to low back, [place] Edwards, or chiropractic evaluation. Discharge planning and return precautions reviewed with the patient. All questions answered. Diagnostic Imaging Diagonstic Imaging: MRI Plain Films/CT/US/NM/MRI: other (lumbar spine) Comments NAME: BRIAN KONG MED REC#: [id number] PHYSICIAN: DAMARIS MADERA MD CC: NAILA HENDRIX MD; DAMARIS MADERA MD Page 2 of 2 RADIOLOGY REPORT [facility] [place], [place] CC: NAILA HENDRIX MD; DAMARIS MADERA MD Page 1 of 2 RADIOLOGY REPORT NAME: BRIAN KONG MED REC#: [id number] PT STATUS: REG CLI : 1975 PHYSICIAN: DAMARIS MADERA MD ADMIT DATE: 09/09/18/RAD Signed Date of Exam: 09/09/18 MRI LUMBAR SPINE W/O CONTRAST PROCEDURE: MRI lumbar spine. TECHNIQUE: Multiplanar, multisequence MRI of the lumbar spine was performed without contrast. INDICATION: Chronic lower back pain with bilateral leg pain. COMPARISON: 04/19/2017. FINDINGS: For the purposes of this exam, last well-formed disc space is denoted the L5-S1 level. Static alignment is maintained. There is no significant azul- or retrolisthesis. There is no evidence of jumped facets. Vertebral body heights are maintained. There is no evidence of acute fracture. Evaluation of marrow signal again demonstrates scattered areas of T2 bright and T1 dark nodular signal intensity within the L1, L3, and L5 vertebral bodies. These foci all appear stable when compared to 04/19/2017. Marrow signal is otherwise unremarkable. Intervertebral disc heights are fairly well-maintained. There are mild multilevel anterior and posterior disc bulges. Visualized portions of distal cord are unremarkable. Conus terminates at approximately the L1-L2 level. No abnormal intrathecal filling defects are seen. Pre-and paravertebral soft tissue structures are unremarkable. Axial images demonstrate the following: T12-L1: There is no large disc bulge or focal protrusion. There is no significant spinal canal or neuroforaminal stenosis. L1-L2: There is mild broad-based posterior disc bulge which results in minimal flattening of the anterior thecal sac. Spinal canal and neural foramen are otherwise unremarkable. L2-L3: There is broad-based posterior disc bulge, which results in minimal flattening of the anterior thecal sac and minimal narrowing of the bilateral neural foramen. L3-L4: There is slight central posterior disc protrusion superimposed on broad-based posterior disc bulge. As result, there is mild narrowing of the spinal canal and bilateral neural foramen. L4-L5: There is left paracentric posterior disc protrusion superimposed on broad-based posterior disc bulge. This has progressed since prior exam. There is also bilateral facet arthropathy. As result, there is asymmetric narrowing of the spinal canal and an asymmetric stenosis of the left lateral recess. There is also mild narrowing of the bilateral neural foramen. L5-S1: There is no large disc bulge or focal contusion. There is bilateral facet arthropathy. There is no significant spinal canal or neuroforaminal stenosis. IMPRESSION: 1. Multilevel degenerative changes, greatest at the L4-L5 level. Again, there has been interval progression since previous exam. 2. No acute fracture or dislocation. 3. Multiple atypical T1 dark, T2 bright nodular foci within the L1, L3, and L5 vertebral bodies. Stability since 04/19/2017 suggest benignity such as atypical hemangiomas. Dictated by: Dictated on workstation # [id number] Dict: 09/09/18 1112 Trans: 09/09/18 1147 Interpreted by: NAILA HENDRIX MD Electronically signed by: NAILA HENDRIX MD 09/09/18 1147 Reviewed: Reviewed by Me Departure Impression Primary Impression: Degenerative joint disease (DJD) of lumbar spine Qualified Codes: M47.26 - Other spondylosis with radiculopathy, lumbar region Additional Impression: Lumbar radiculopathy Disposition: 01 HOME, SELF-CARE Condition: Stable Departure-Patient Inst. Decision time for Depature: 16:15 Referrals: DAMARIS MADERA MD (PCP/Family) Primary Care Physician Patient Instructions: Low Back Pain (DC), Radiculopathy (DC) Add. Discharge Instructions: Alternate between heat and ice to the low back. Consider physical therapy. Consider evaluation at the pain clinic at [address] Try Oxford balm rub or patches. Use a cane for ambulation. Follow-up with Dr. Madera if symptoms are not improving or worsen. Return to emergency department for new, urgent health care problems. All discharge instructions reviewed with patient and/or family. Voiced understanding. Work/School Note: Work Release Form Date Seen in the Emergency Department: Sep 21, 2018 Return to Work: Sep 22, 2018 Other Restrictions Listed Below: Continue Light Duty JAMES FUNK Sep 21, 2018 15:38
[2018-09-21 16:27] VITALS: BP 127/63
== END 2018-09-21 16:27 | disposition home or self-care (01) ==
LOC: EDUNIT# 15:05 → ER 15:06
DX: M51.36 Other intervertebral disc degeneration, lumbar region (principal); M54.16 Radiculopathy, lumbar region; I25.10 Atherosclerotic heart disease of native coronary artery without angina pectoris; E78.00 Pure hypercholesterolemia, unspecified; I10 Essential (primary) hypertension; E11.9 Type 2 diabetes mellitus without complications; F17.210 Nicotine dependence, cigarettes, uncomplicated; Z91.041 Radiographic dye allergy status; Z82.49 Family history of ischemic heart disease and other diseases of the circulatory system; Z90.49 Acquired absence of other specified parts of digestive tract; Z98.61 Coronary angioplasty status; Z88.5 Allergy status to narcotic agent; Z88.6 Allergy status to analgesic agent; Z79.84 Long term (current) use of oral hypoglycemic drugs
CPT/HCPCS: 99281